=== PATIENT | female | born 1960 | race Caucasian/White ===

== ENCOUNTER 2017-10-05 13:35 | Day surgery (SDC) | payer OTHER ==
[2017-10-05] MEDS ORDERED: LACTATED RINGERS 1,000 ML IV ONE (14:15)
[2017-10-05] MEDS ORDERED: MIDAZOLAM 2 MG/2 ML VIAL IVP ONE (16:25)
[2017-10-05] MEDS ORDERED: fentaNYL 100 MCG/2 ML VIAL IVP ONE (16:25)
[2017-10-05 16:57] VITALS: BP 124/77
== END 2017-10-05 13:36 | disposition home or self-care (01) ==
LOC: SDS 13:35
PROVIDERS: ATTEND Surgery
PROC: 0DJD8ZZ Inspection of Lower Intestinal Tract, Via Natural or Artificial Opening Endoscopic (ICD-10-PCS; principal; 2017-10-05 15:00)
DX: Z12.11 Encounter for screening for malignant neoplasm of colon (principal); K64.8 Other hemorrhoids
CPT/HCPCS: 45378; J7120

== ENCOUNTER 2018-01-25 03:09 | Emergency (ER) | payer OTHER ==
[2018-01-25 03:26] LABS: BILIRUBIN,URINE NEGATIVE (NEGATIVE); GLUCOSE, URINE (UA) NEGATIVE (NEGATIVE); KETONES,URINE (UA) NEGATIVE (NEGATIVE); LEUKOCYTE ESTERASE, URINE NEGATIVE (NEGATIVE); NITRITE,URINE NEGATIVE (NEGATIVE); OCCULT BLOOD,URINE NEGATIVE (NEGATIVE); PROTEIN,URINE NEGATIVE (NEGATIVE); UROBILINOGEN,URINE 1 (NORMAL) E.U./dL (NORMAL)
[2018-01-25 03:30] LABS: CLARITY,URINE CLEAR (CLEAR)
[2018-01-25 04:03] LABS: BASOPHILS # (AUTO) 0.1 10^3/uL (0.0-0.1); BASOPHILS % (AUTO) 0.9 %; EOSINOPHILS # (AUTO) 0.1 10^3/uL (0.0-0.7); EOSINOPHILS % (AUTO) 1.5 %; HGB - HEMOGLOBIN 12.1 g/dL (12.0-16.0); MEAN CORPUSCULAR HGB CONC 33.6 g/dL (32.0-36.0); MEAN CORPUSCULAR VOLUME 86.4 fL (81.0-99.0); MONOCYTES # (AUTO) 0.9 10^3/uL (0.0-1.0); MONOCYTES % (AUTO) 12.4 %; NEUTROPHILS # (AUTO) 5.3 10^3/uL (1.5-6.6); NEUTROPHILS % (AUTO) 71.2 %; PLT - PLATELET COUNT 281 10^3/uL (130-450); RED BLOOD COUNT 4.16 10^6/uL (4.20-5.40); RED CELL DISTRIBUTION WIDTH 12.3 % (12.0-15.0); WHITE BLOOD COUNT 7.5 x10^3/uL (4.8-10.8)
[2018-01-25 04:15] LABS: ALBUMIN 3.5 g/dL (3.2-5.5); ALBUMIN/GLOBULIN RATIO 0.9 (1.0-2.2); BILIRUBIN,TOTAL 0.5 mg/dL (0.2-1.0); CALCIUM 8.5 mg/dL (8.5-10.3); CREATININE 0.7 mg/dL (0.4-1.0); TOTAL PROTEIN 7.5 g/dL (6.7-8.2)
[2018-01-25] MEDS ORDERED: KETOROLAC 60 MG/2 ML VIAL IM STA (04:17)
[2018-01-25] MEDS ORDERED: POTASSIUM CHLORIDE 20 MEQ TABLET PO STA (04:17)
[2018-01-25] MEDS ORDERED: CYCLOBENZAPRINE 10 MG TABLET PO STA (04:27)
--- NOTE | 2018-01-25 04:32 | ED Physician Documentation ---
PD HPI BACK PAIN - Stated complaint Stated Complaint: R SIDE BACK PAIN - Chief complaint Chief Complaint: Abd Pain - History obtained from History obtained from: Patient - History of Present Illness Timing - onset: How many weeks ago (1) Timing - details: Gradual onset, Still present Location: Upper, Lower, Right Quality: Pain, Spasm Associated symptoms: No: Fever, Weakness, Hematuria Similar symptoms before: Has not had sx before Recently seen: Not recently seen - Additional information Additional information: Patient is a 57 year old female with no significant past medical history who is presenting to the emergency department for right sided back pain. patient states that for the last week she has had right sided flank pain and it radiates up to her right shoulder. patient states that she took ibuprofen but it didn't really help. Review of Systems Constitutional: denies: Fever, Chills Eyes: reports: Reviewed and negative Ears: reports: Reviewed and negative Nose: reports: Reviewed and negative Throat: reports: Reviewed and negative Cardiac: denies: Chest pain / pressure, Palpitations Respiratory: denies: Dyspnea, Cough, Wheezing GI: denies: Abdominal Pain, Nausea, Vomiting : denies: Dysuria, Frequency Skin: denies: Rash Musculoskeletal: reports: Back pain. 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 - Present Medications Home Medications: Ambulatory Orders Medication Instructions Recorded Confirmed Lisinopril 20 mg PO 10/05/17 Cyclobenzaprine [Flexeril] 10 mg PO TID PRN #14 tablet 01/25/18 Lidocaine Patch 5% [Lidoderm Patch] 1 each TOP DAILY #14 patch 01/25/18 - Allergies Allergies/Adverse Reactions: Allergies Allergy/AdvReac Type Severity Reaction Status Date / Time No Known Drug Allergies Allergy Verified 08/08/13 09:54 - Social History Does the pt smoke?: No Smoking Status: Never smoker Does the pt drink ETOH?: No Does the pt have substance abuse?: No - Immunizations Immunizations are current?: Yes - POLST Patient has POLST: No PD ED PE NORMAL - Vitals Vital signs reviewed: Yes - General General: Alert and oriented X 3, No acute distress - HEENT HEENT: Atraumatic, PERRL - Neck Neck: Supple, no meningeal sign - Cardiac Cardiac: RRR - Respiratory Respiratory: No respiratory distress, Clear bilaterally - Abdomen Abdomen: Soft, Non tender, Non distended - Derm Derm: Normal color, Warm and dry - Extremities Extremities: No deformity - Neuro Neuro: Alert and oriented X 3 PD ED PE EXPANDED - Abdomen Abdomen: Surgical scars (ruq surgical scar). No: Rebound, Guarding - Back Back: Soft tissue tenderness (tenderness to palpatioin of right paraspinal muscles and lower trapezious muscles) Results - Vitals Vitals: Vital Signs - 24 hr 01/25/18 03:10 Temperature 36.6 C Heart Rate 71 Respiratory 20 Rate Blood Pressure 185/89 H O2 Saturation 97 Oxygen O2 Source Room air - Labs Labs: Laboratory Tests 01/25/18 01/25/18 01/25/18 03:20 03:55 03:55 WBC 7.5 RBC 4.16 L Hgb 12.1 Hct 35.9 L MCV 86.4 MCH 29.0 MCHC 33.6 RDW 12.3 Plt Count 281 MPV 7.0 L Neut # 5.3 Lymph # 1.0 L [place] # 0.9 Eos # 0.1 Baso # 0.1 Absolute Nucleated RBC 0.01 Nucleated RBC % 0.1 Sodium 135 Potassium 3.1 L Chloride 102 Carbon Dioxide 25 Anion Gap 8.0 BUN 12 Creatinine 0.7 Estimated GFR (MDRD) 87 L Glucose 126 H Calcium 8.5 Total Bilirubin 0.5 AST 39 ALT 45 Alkaline Phosphatase 122 H Total Protein 7.5 Albumin 3.5 Globulin 4.0 Albumin/Globulin Ratio 0.9 L Lipase 26 Urine Color YELLOW Urine Clarity CLEAR Urine pH 6.0 Ur Specific [place] 1.010 Urine Protein NEGATIVE Urine Glucose (UA) NEGATIVE Urine Ketones NEGATIVE Urine Occult Blood NEGATIVE Urine Nitrite NEGATIVE Urine Bilirubin NEGATIVE Urine Urobilinogen 1 (NORMAL) Ur Leukocyte Esterase NEGATIVE Ur Microscopic Review NOT INDICATED Urine Culture Comments NOT INDICATED PD MEDICAL DECISION MAKING - ED course Complexity details: reviewed old records, reviewed results, re-evaluated patient , considered differential, d/w patient ED course: Patient was seen and examined at bedside. Patient's urine was collected. patient's urine showed no abnormalities labs were drawn and within normal limits. Patient vital signs were within normal limits. patient was treated with toradol and flexeril. patient required no further work up and was stable for discharge with outpatient follow up . Departure - Departure Disposition: 01 Home, Self Care Clinical Impression: Back pain Condition: Good Instructions: ANTI-INFLAMMATORY, General, ED Spasm Back No Trauma Follow-Up: Sharona Jenkins DO [Primary Care Provider] - Prescriptions: Cyclobenzaprine [Flexeril] 10 mg PO TID PRN #14 tablet PRN Reason: Spasms Lidocaine Patch 5% [Lidoderm Patch] 1 each TOP DAILY #14 patch Comments: Your diagnostics today were within normal limits. there were no abnormalities on your blood work or urine. your symptoms are likely muscloskeletal in nature. You should alternate between motrin and tylenol as needed for pain and and flexeril for spasm. You should try seeing a massage therapist. You should follow up with your doctor if your symptoms persist. You may return to the emergency department at any time for new, worsening or uncontrollable symptoms. Forms: Activity restrictions
[2018-01-25 04:34] VITALS: BP 165/79
== END 2018-01-25 04:41 | disposition home or self-care (01) ==
LOC: ED 03:09
DX: M54.9 Dorsalgia, unspecified (principal); I10 Essential (primary) hypertension
CPT/HCPCS: 36415; 80053; 81003; 83690; 85025; 96372; 99283; A9270; 81001; 87086

== ENCOUNTER 2018-09-24 10:57 | Outpatient (CLI) | payer OTHER ==
[2018-09-24 15:04] LABS: ALBUMIN 3.8 g/dL (3.2-5.5); ALKALINE PHOSPHATASE 61 IU/L (42-121); ALT ALANINE AMINOTRANSFERASE 12 IU/L (10-60); AST ASPARTATE AMINOTRANSFERASE 15 IU/L (10-42); BILIRUBIN,TOTAL 0.4 mg/dL (0.2-1.0); BUN - BLOOD UREA NITROGEN 9 mg/dL (6-20); CALCIUM 8.6 mg/dL (8.5-10.3); CARBON DIOXIDE - CO2 27 mmol/L (21-32); CHLORIDE 105 mmol/L (101-111); CHOL/HDL RATIO 2.9 (<4.4); CHOLESTEROL 162 mg/dL; CREATININE 0.3 mg/dL (0.4-1.0); GFR - MDRD 230 (>89); GLUCOSE 93 mg/dL (70-100); HDL CHOLESTEROL 55 mg/dL; LDL CHOLESTEROL,CALCULATED 79 mg/dL; LDL/HDL RATIO 1.4 (<4.4); SODIUM 136 mmol/L (135-145); TOTAL PROTEIN 7.6 g/dL (6.7-8.2); VLDL CHOLESTEROL 28 mg/dL
[2018-09-24 15:21] LABS: BASOPHILS % (AUTO) 0.8 %; EOSINOPHILS # (AUTO) 0.1 10^3/uL (0.0-0.7); EOSINOPHILS % (AUTO) 3.1 %; HGB - HEMOGLOBIN 12.8 g/dL (12.0-16.0); LYMPHOCYTES # (AUTO) 1.8 10^3/uL (1.5-3.5); LYMPHOCYTES % (AUTO) 39.7 %; MEAN CORPUSCULAR HEMOGLOBIN 29.9 pg (27.0-31.0); MEAN CORPUSCULAR HGB CONC 34.8 g/dL (32.0-36.0); MEAN CORPUSCULAR VOLUME 85.8 fL (81.0-99.0); MEAN PLATELET VOLUME 8.6 fL (7.9-10.8); MONOCYTES # (AUTO) 0.4 10^3/uL (0.0-1.0); MONOCYTES % (AUTO) 8.6 %; NEUTROPHILS # (AUTO) 2.2 10^3/uL (1.5-6.6); NEUTROPHILS % (AUTO) 47.8 %; PLT - PLATELET COUNT 304 10^3/uL (130-450); RED BLOOD COUNT 4.27 10^6/uL (4.20-5.40); RED CELL DISTRIBUTION WIDTH 12.9 % (12.0-15.0); WHITE BLOOD COUNT 4.6 x10^3/uL (4.8-10.8)
[2018-09-24 15:28] LABS: HEMOGLOBIN A1C 0.55 g/dL; HEMOGLOBIN A1C % 5.7 % (4.6-6.2)
== END 2018-09-24 10:58 | disposition home or self-care (01) ==
LOC: LAB.WCP 10:57
PROVIDERS: ATTEND Family Medicine
DX: I10 Essential (primary) hypertension (principal); R73.01 Impaired fasting glucose
CPT/HCPCS: 36415; 80053; 80061; 83036; 83721; 85025

== ENCOUNTER 2018-09-24 15:51 | Outpatient (CLI) | payer OTHER ==
--- NOTE | 2018-09-25 08:49 | XRAY Report ---
Reason: HIP PAIN,LEFT Procedure Date: 09/24/2018 Accession Number: [id number] / [id number] Procedure: XR - Hip w/Pelvis 2-3V LT CPT Code: FULL RESULT: EXAM: LEFT HIP AND PELVIS RADIOGRAPHY EXAM DATE: 09/24/2018 04:35 PM. HISTORY: HIP Pain, left. COMPARISONS: None. TECHNIQUE: 1 view of the pelvis and 1 view of the hip. FINDINGS: Bones: Normal. No fracture or bone lesion. Joints: Mild left hip joint space narrowing. Soft Tissues: Right lower quadrant surgical clip. No soft tissue swelling. IMPRESSION: Mild left hip degenerative disease. RADIA
--- NOTE | 2018-09-25 08:50 | XRAY Report ---
Reason: KNEE PAIN Procedure Date: 09/24/2018 Accession Number: [id number] / [id number] Procedure: XR - Knee 3 View LT CPT Code: FULL RESULT: EXAM: LEFT KNEE RADIOGRAPHY EXAM DATE: 09/24/2018 04:35 PM. CLINICAL HISTORY: KNEE PAIN. COMPARISON: None. TECHNIQUE: 3 views. Weightbearing. FINDINGS: Bones: Normal. No fractures or bone lesions. Joints: Mild medial compartment joint space narrowing. Mild medial and patellofemoral compartment marginal spurring. Small joint effusion. No subluxation. Soft Tissues: Normal. No soft tissue swelling. IMPRESSION: 1. Mild osteoarthritis, greater within the medial compartment. 2. Small joint effusion. RADIA
== END 2018-09-24 15:52 | disposition home or self-care (01) ==
LOC: DI 15:51
PROVIDERS: ATTEND Family Medicine
DX: M16.12 Unilateral primary osteoarthritis, left hip (principal); M17.12 Unilateral primary osteoarthritis, left knee; M25.462 Effusion, left knee; I10 Essential (primary) hypertension; R73.01 Impaired fasting glucose
CPT/HCPCS: 36415; 80053; 80061; 83036; 85025

== ENCOUNTER 2018-10-05 14:58 | Outpatient (CLI) | payer OTHER ==
--- NOTE | 2018-10-17 08:30 | Mammography Report ---
Reason: SCREENING MAMMO Procedure Date: 10/05/2018 Accession Number: [id number] / [id number] Procedure: MGN - Screening Mammo Dig Bilat CPT Code: FULL RESULT: EXAM: Screening Mammo Dig Bilat DATE: 10/05/2018 3:16 PM CLINICAL HISTORY: Screening encounter. Examination. History of late childbearing. Family history of breast cancer in a sister at the age of 57. TECHNIQUE: Bilateral CC and MLO views were obtained. COMPARISON: None FINDINGS: The breasts demonstrate heterogeneously dense fibroglandular parenchyma bilaterally. No suspicious masses, clustered microcalcifications, or regions of architectural distortion are identified. IMPRESSION: Negative examination RECOMMENDATION: Routine annual screening unless otherwise clinically indicated. BIRADS CATEGORY 1: Negative STANDARD QUALIFYING STATEMENTS: 1. This examination was reviewed with the aid of Computer-Aided Detection (CAD). 2. A negative or benign imaging report should not preclude biopsy if clinically suspicious findings are present. 3. Dense breasts may obscure an underlying neoplasm. 4. This examination was reviewed without the aid of 3D breast imaging (tomosynthesis).
== END 2018-10-05 14:59 | disposition home or self-care (01) ==
LOC: DI.N 14:58
DX: Z12.31 Encounter for screening mammogram for malignant neoplasm of breast (principal); Z80.3 Family history of malignant neoplasm of breast
CPT/HCPCS: 77067

== ENCOUNTER 2018-11-06 23:05 | Emergency (ER) | payer OTHER ==
--- NOTE | 2018-11-06 23:19 | ED Physician Documentation ---
PD HPI ABD PAIN - Stated complaint Stated Complaint: LT LOWER RIB PAIN - Chief complaint Chief Complaint: Abd Pain - History obtained from History obtained from: Patient - History of Present Illness Timing - onset: Yesterday Timing - details: Gradual onset, Waxing and waning Pain level max: 8 Pain level now: 2 Quality: Pain Location: LUQ Radiation: No: Chest (Previous ED visits often revealed abnormal LFTs and abnormal findings on RUQ US; however, these symptoms are different location and feel different), , Lower back, Left flank, Left shoulder, Right flank, Right shoulder, Upper back Improved by: No: Eating, Laying still, Vomiting, BM, Position, Meds Worsened by: No: Eating, Moving, Breathing, Position, Palpation Associated symptoms: Nausea. 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 - Present Medications Home Medications: Ambulatory Orders Medication Instructions Recorded Confirmed Lisinopril 20 mg PO 10/05/17 Cyclobenzaprine [Flexeril] 10 mg PO TID PRN #14 tablet 01/25/18 Lidocaine Patch 5% [Lidoderm Patch] 1 each TOP DAILY #14 patch 01/25/18 - Allergies Allergies/Adverse Reactions: Allergies Allergy/AdvReac Type Severity Reaction Status Date / Time lisinopril AdvReac Respiratory Verified 11/07/18 14:48 - Social History Does the pt smoke?: No Smoking Status: Never smoker Does the pt drink ETOH?: No Does the pt have substance abuse?: No - Immunizations Immunizations are current?: Yes - POLST Patient has POLST: No PD ED PE NORMAL - Vitals Vital signs reviewed: Yes - General General: Alert and oriented X 3, No acute distress, Well developed/nourished - Cardiac Cardiac: RRR, No murmur - Respiratory Respiratory: No respiratory distress, Clear bilaterally - Abdomen Abdomen: Normal bowel sounds, Soft, Non distended, No organomegaly, Other (Mild epigastric and LUQ tenderness to palpation without rebound or guarding) - Back Back: No CVA TTP - Derm Derm: Normal color, Warm and dry Results - Vitals Vitals: Oxygen O2 Source Room air - Labs Labs: Laboratory Tests 11/06/18 11/06/18 11/06/18 23:30 23:30 23:30 WBC 8.8 RBC 4.34 Hgb 13.0 Hct 37.1 MCV 85.6 MCH 30.0 MCHC 35.0 RDW 13.2 Plt Count 234 MPV 7.4 L Neut # (Auto) 6.9 H Lymph # (Auto) 1.1 L [place] # (Auto) 0.8 Eos # (Auto) 0.0 Baso # (Auto) 0.0 Absolute Nucleated RBC 0.01 Nucleated RBC % 0.1 D-Dimer 258.4 H Sodium 134 L Potassium 3.4 L Chloride 105 Carbon Dioxide 22 Anion Gap 7.0 BUN 10 Creatinine 0.7 Estimated GFR (MDRD) 87 L Glucose 132 H Calcium 8.8 Total Bilirubin 1.1 H AST 19 ALT 16 Alkaline Phosphatase 68 Total Protein 8.0 Albumin 4.0 Globulin 4.0 Albumin/Globulin Ratio 1.0 Amylase Lipase 34 11/06/18 23:30 WBC RBC Hgb Hct MCV MCH MCHC RDW Plt Count MPV Neut # (Auto) Lymph # (Auto) [place] # (Auto) Eos # (Auto) Baso # (Auto) Absolute Nucleated RBC Nucleated RBC % D-Dimer Sodium Potassium Chloride Carbon Dioxide Anion Gap BUN Creatinine Estimated GFR (MDRD) Glucose Calcium Total Bilirubin AST ALT Alkaline Phosphatase Total Protein Albumin Globulin Albumin/Globulin Ratio Amylase 59 Lipase PD MEDICAL DECISION MAKING - ED course Complexity details: reviewed old records, reviewed results, re-evaluated patient, considered differential, d/w patient, d/w family ED course: reassuring blood tests and entirely nontender abdomen on reexam. emergent imaging unlikely to reveal etiology of symptoms or change (expectant) management. Departure - Departure Disposition: Home, Self Care Clinical Impression: Abdominal pain Condition: Good Instructions: ED Abdominal Pain Unkn Cause Follow-Up: Sharona Jenkins DO [Primary Care Provider] - (Call in the morning to arrange for next available appointment) Discharge Date/Time: 11/07/18 01:30
[2018-11-06 23:37] LABS: BASOPHILS % (AUTO) 0.4 %; EOSINOPHILS % (AUTO) 0.5 %; LYMPHOCYTES # (AUTO) 1.1 10^3/uL (1.5-3.5); LYMPHOCYTES % (AUTO) 12.1 %; MEAN CORPUSCULAR VOLUME 85.6 fL (81.0-99.0); MEAN PLATELET VOLUME 7.4 fL (7.9-10.8); MONOCYTES # (AUTO) 0.8 10^3/uL (0.0-1.0); MONOCYTES % (AUTO) 8.8 %; NEUTROPHILS # (AUTO) 6.9 10^3/uL (1.5-6.6); NEUTROPHILS % (AUTO) 78.2 %; PLT - PLATELET COUNT 234 10^3/uL (130-450); RED BLOOD COUNT 4.34 10^6/uL (4.20-5.40); RED CELL DISTRIBUTION WIDTH 13.2 % (12.0-15.0); WHITE BLOOD COUNT 8.8 x10^3/uL (4.8-10.8)
[2018-11-06 23:48] LABS: BILIRUBIN,TOTAL 1.1 mg/dL (0.2-1.0); CALCIUM 8.8 mg/dL (8.5-10.3); CREATININE 0.7 mg/dL (0.4-1.0)
[2018-11-07 01:18] VITALS: BP 128/70
[2018-11-07] MEDS ORDERED: HYDROcod/ACET 5/325 Prepack 4 PO STA (01:19)
== END 2018-11-07 01:30 | disposition home or self-care (01) ==
LOC: ED 23:05
DX: R10.13 Epigastric pain (principal); R10.12 Left upper quadrant pain
CPT/HCPCS: 36415; 80053; 82150; 83690; 85025; 85379; 99283

== ENCOUNTER 2020-07-15 12:09 | Observation (INO) | payer OTHER ==
[2020-07-15] MEDS ORDERED: SODIUM CHLORIDE FLUSH 0.9% 10 ML SYRINGE IVP PRN (14:48)
[2020-07-15] MEDS ORDERED: MORPHINE 2 MG/ML CARPUJECT IVP PRN (14:48)
[2020-07-15] MEDS ORDERED: ONDANSETRON 4 MG/2 ML VIAL IVP PRN (14:48)
[2020-07-15] MEDS ORDERED: oxyCODONE 5 MG TABLET PO PRN (14:48)
--- NOTE | 2020-07-15 14:55 | HISTORY & PHYSICAL EXAMINATION ---
Chief Complaint - Chief Complaint Chief Complaint: abdominal pain History of Present Illness - Admitted From Admitted From:: direct admission from Dr. Izabela Jenkins office - History Obtained From History obtained from: pt Exam Limitations: no - History of Present Illness HPI Comment/Other: This is a 60 years old female with a past medical history significant for hypotension, Cholelithiasis, Who was directly admission from Dr. Izabela Jenkins's office, complain of abdominal pain. Patient reported he want to [facility] for her abdominal pain. she reported they did a CAT scan for her abdomen and told her she could have cancer and wanted patient be transferred to the [facility] to the further management. Patient declined and left the hospital, she want to see her primary care. Per her primary care Dr. Izabela Mcduffie report Patient may have abscess with fluid collection in her abdomen per radiologist reported to her. Then patient was advised by Dr. Izabela Jenkins to the hospital by direction admission. Patient reported she had abdominal pain for a few days ago, she denies fever or chilling, Nausea, vomiting, diarrhea. She reported her pain located in right upper quadrant, Coming and going. Pain become more intensive special when she had a deep breathing. We are still waiting for Dr. Izabela Jenkins's report of pt's discharge summary from [facility], CAT scan, [facility] report, and primary care visiting report. Consult with surgeon, surgeon suggest to have CAT scan with contrast in our hospital now. Patient is admitted for further medical management. 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 Her sister has breast cancer Social History Notes: Patient denies history of cigarette smoking, alcohol and drug issues.She had 3 daughters and is living in the [place] with her . - POLST Patient has POLST: No Meds/Allgy - Home Medications Home Medications: Ambulatory Orders Medication Instructions Recorded Confirmed Ketorolac [Toradol] 10 mg PO Q6H PRN 07/15/20 - Allergies Allergies/Adverse Reactions: Allergies Allergy/AdvReac Type Severity Reaction Status Date / Time lisinopril AdvReac Respiratory Verified 11/07/18 14:48 Review of Systems - Constitutional Constitutional: denies: Fatigue, Fever, Chills, Malaise, Weakness, Diaphoresis, Night sweats - Eyes Eyes: denies: Pain, Blurred vision, Spots in vision, Field loss, Vision loss, Dipolpia - Ears, Nose & Throat Ears, Nose & Throat: denies: Ear pain, Tinnitus, Vertigo, Nasal pain, Nasal discharge, Nosebleeds, Nasal obstruction, Mouth lesions, Bleeding gums - Cardiovascular Cariovascular: denies: Irregular heart rate, Palpitations, Chest pain, Edema, Lightheadedness, Syncope, Exertional dyspnea, Decr. exercise tolerance - Respiratory Respiratory: denies: Cough, Sputum production, Wheezing, Snoring, Hemoptysis, Orthopnea, SOB at rest, SOB with exertion - Gastrointestinal Gastrointestinal: reports: Abdominal pain. denies: Abdominal distention, Constipation, Diarrhea, Change in bowel habits, Rectal bleeding, Black stools, Bloody stools, Nausea, Vomiting, Saym blood emesis, Coffee grounds emesis, Reflux/heartburn - Genitourinary Genitourinary: denies: Dysuria, Frequency, Urgency, Hematuria, Incontinence, Flank pain, Nocturia, Urethral discharge - Musculoskeletal Musculoskeletal: denies: Muscle pain, Back pain, Muscle aches, Stiffness, Limited range of motion, Gout - Integumentary Integumentary: denies: Rash, Lesions, Lumps, Pigment changes, Nail changes - Neurological Neurological: denies: General weakness, Focal weakness, Headache, Dizziness, Numbness, Memory problems, Pre-existing deficit, Abnormal gait, Seizures, Incoordination, Slurred speech - Psychiatric Psychiatric: denies: Depression, Anxiety, Suicidal, Delusions, Hallucinations, Homicidal - Endocrine Endocrine: denies: Polyuria, Polydypsia, Polyphagia, Intolerance to cold - Hematologic/Lymphatic Hematologic/Lymphatic: denies: Anemia, Bruising, Petechiae, Blood clots, Lymphadenopathy, Bleeding tendencies, Recurrent infections Exam - Physical Exam General Appearance: positive: No acute distress, Alert. negative: Lethargic Eyes Bilateral: positive: Normal inspection, PERRL, No lid inflammation ENT: positive: ENT inspection nml, No signs of dehydration. negative: Purulent nasal drainage Neck: positive: Nml inspection, Thyroid nml, Trachea midline. negative: Thyrom egaly, Stiff neck, Tracheal deviation Respiratory: positive: Chest non-tender, No respiratory distress, Breath sounds nml. negative: Wheezes, Rales, Rhonchi Cardiovascular: positive: Regular rate & rhythm, No murmur. negative: Tachycardia, Bradycardia, Systolic murmur, Diastolic murmur Peripheral Pulses: positive: 2+ Abdomen: positive: Non-tender, No organomegaly, Nml bowel sounds, No distention. negative: Tenderness, Guarding, Rebound, Abnml bowel sounds Back: positive: Nml inspection. negative: CVA tenderness (R), CVA tenderness (L) Skin: positive: Color nml, No rash, Warm, Dry. negative: Cyanosis, Diaphoresis, Pallor Extremities: positive: Non-tender, Full ROM, Nml appearance. negative: Calf tenderness, Dianne's sign/cords Neurologic/Psychiatric: positive: Oriented x3, Motor nml, Sensation nml, Mood/affect nml. negative: Weakness, Sensory loss, Facial droop, Slurred/abnml speech, Depressed mood/affect Conclusion/Plan - Problem List (1) Abdominal pain Conclusion/Plan: Patient report abdominal pain but is better than before. Patient signed AMA and [facility]. Radiologist reported to Dr. Izabela Poe Patient had intra- abdominal abscess. We still did not receive any documentation or imaging study yet. Consult with our surgeon, surgeon suggestion we do CAT scan in here right now. 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
[2020-07-15 15:10] LABS: BASOPHILS % (AUTO) 0.5 %; EOSINOPHILS # (AUTO) 0.2 10^3/uL (0.0-0.7); EOSINOPHILS % (AUTO) 3.8 %; HGB - HEMOGLOBIN 12.4 g/dL (12.0-16.0); LYMPHOCYTES # (AUTO) 1.4 10^3/uL (1.5-3.5); LYMPHOCYTES % (AUTO) 22.3 %; MEAN CORPUSCULAR HEMOGLOBIN 29.5 pg (27.0-31.0); MEAN CORPUSCULAR HGB CONC 33.2 g/dL (32.0-36.0); MEAN CORPUSCULAR VOLUME 88.6 fL (81.0-99.0); MEAN PLATELET VOLUME 8.6 fL (7.9-10.8); MONOCYTES # (AUTO) 0.7 10^3/uL (0.0-1.0); MONOCYTES % (AUTO) 10.3 %; NEUTROPHILS % (AUTO) 62.6 %; PLT - PLATELET COUNT 337 10^3/uL (130-450); RED BLOOD COUNT 4.21 10^6/uL (4.20-5.40); RED CELL DISTRIBUTION WIDTH 12.1 % (12.0-15.0); WHITE BLOOD COUNT 6.4 x10^3/uL (4.8-10.8)
[2020-07-15 15:26] LABS: ALBUMIN 3.7 g/dL (3.2-5.5); ALBUMIN/GLOBULIN RATIO 0.9 (1.0-2.2); BILIRUBIN,TOTAL 0.3 mg/dL (0.2-1.0); CALCIUM 8.9 mg/dL (8.5-10.3); CREATININE 0.8 mg/dL (0.4-1.0); MAGNESIUM 2.2 mg/dL (1.7-2.8); TOTAL PROTEIN 7.9 g/dL (6.7-8.2)
[2020-07-15] MEDS ORDERED: POTASSIUM CHLORIDE 20 MEQ TABLET PO SCH (15:35)
[2020-07-15] MEDS ORDERED: PIPERACILLIN/TAZOBACTAM 3.375 GM in SODIUM CHLORIDE 0.9% MINIBAG 100 ML IV SCH (16:00)
[2020-07-15] MEDS: SODIUM CHLORIDE 0.9% 1,000 ML IV SCH (16:35)
[2020-07-15] MEDS ORDERED: hydrALAZINE INJ 20 MG/ML VIAL IVP PRN (16:48)
[2020-07-15] MEDS ORDERED: IOVERSOL 320 100 ML VIAL IVP ONE ×2 (16:50→19:13)
[2020-07-15] MEDS ORDERED: IOVERSOL 320 50 ML VIAL ONE (16:50)
[2020-07-15 17:10] LABS: INR 1.3 (0.8-1.2); PT - PROTHROMBIN TIME 13.8 secs (9.9-12.6)
[2020-07-15] MEDS: SODIUM CHLORIDE FLUSH 0.9% 10 ML SYRINGE IVP SCH (17:44)
[2020-07-15] MEDS: amLODIPine 5 MG TABLET PO SCH (17:53)
[2020-07-15] MEDS ORDERED: IOVERSOL 320 50 ML VIAL PO ONE (19:12)
--- NOTE | 2020-07-15 20:41 | CT Report ---
PROCEDURE: Abdomen/Pelvis W INDICATIONS: RIGHT UPPER QUAD PAIN CONTRAST: IV CONTRAST: Optiray 320 ml: 100 PO CONTRAST: Optiray 320 ml50 TECHNIQUE: After the administration of oral and intravenous contrast, 5 mm thick sections acquired from the diap hragms to the symphysis. 5 mm thick coronal and sagittal reformats were acquired. For radiation dos e reduction, the following was used: automated exposure control, adjustment of mA and/or kV accordin g to patient size. COMPARISON: CT abdomen pelvis 06/30/2013. FINDINGS: Image quality: Excellent. ABDOMEN: Lung bases: There is a bandlike region of consolidation or atelectasis posteriorly in the right lowe r lobe. There is also atelectasis inferiorly in the right middle lobe. Heart size is normal. Solid organs: There are postsurgical changes suggestive of prior partial right hepatectomy. Posterior ly within the residual right hepatic lobe, there is a multiloculated thick walled cystic collection o r mass measuring up to 6.3 x 4.6 x 5.5 cm with associated adjacent enhancement of the hepatic parench yma. There is perforation beyond the posterior right hepatic capsule with a small amount of perihepat ic fluid demonstrated posteriorly. There is extension to the posterior right hemidiaphragm. An adjace nt region of masslike thickening in the posterior right abdominal wall measuring up to 3.5 x 2.2 cm a ppears unchanged from the prior study. Postsurgical changes are noted in the [place] hepatis with associated pneumobilia. The gallbladder is s urgically absent. Pancreas enhances normally. No adrenal nodules. Kidneys demonstrate normal size a nd enhancement, without hydronephrosis. Peritoneum and bowel: Bowel loops demonstrate normal wall thickness and caliber. No free fluid or a ir. Nodes and vessels: No retroperitoneal or mesenteric adenopathy by size criteria. Aorta and inferior vena cava are normal in size. Miscellaneous: No ventral hernias. PELVIS: Genitourinary: Bladder wall thickness is normal. Miscellaneous: No inguinal hernias or adenopathy. Bones: No suspicious bony lesions. No vertebral body compression fractures. IMPRESSION: 1. Multiloculated thick walled fluid collection or mass demonstrated in the remnant posterior right h epatic lobe with extracapsular extension posteriorly. Associated small amount of adjacent perihepatic fluid is demonstrated as well as a small right pleural effusion and right basilar consolidation. The findings may represent an abscess or a cystic neoplasm. 2. Postsurgical changes status post partial right hepatectomy redemonstrated. 3. Pneumobilia demonstrated, likely related to prior surgery. Reviewed by: Jose E Cortes MD on 07/15/2020 8:39 PM PDT Approved by: Jose E Cortes MD on 07/15/2020 8:39 PM PDT Station ID: [id number]
[2020-07-15] MEDS: PIPERACILLIN/TAZOBACTAM 3.375 GM in SODIUM CHLORIDE 0.9% MINIBAG 100 ML IV SCH (21:27)
[2020-07-16] MEDS: SODIUM CHLORIDE FLUSH 0.9% 10 ML SYRINGE IVP SCH ×3 (01:13→16:06)
[2020-07-16 05:01] LABS: BASOPHILS % (AUTO) 0.3 %; EOSINOPHILS # (AUTO) 0.3 10^3/uL (0.0-0.7); EOSINOPHILS % (AUTO) 4.3 %; HGB - HEMOGLOBIN 12.3 g/dL (12.0-16.0); LYMPHOCYTES # (AUTO) 1.3 10^3/uL (1.5-3.5); LYMPHOCYTES % (AUTO) 21.3 %; MEAN CORPUSCULAR HEMOGLOBIN 29.9 pg (27.0-31.0); MEAN CORPUSCULAR HGB CONC 33.1 g/dL (32.0-36.0); MEAN CORPUSCULAR VOLUME 90.5 fL (81.0-99.0); MEAN PLATELET VOLUME 8.7 fL (7.9-10.8); MONOCYTES # (AUTO) 0.7 10^3/uL (0.0-1.0); MONOCYTES % (AUTO) 11.5 %; NEUTROPHILS # (AUTO) 3.9 10^3/uL (1.5-6.6); NEUTROPHILS % (AUTO) 62.1 %; PLT - PLATELET COUNT 330 10^3/uL (130-450); RED BLOOD COUNT 4.11 10^6/uL (4.20-5.40); RED CELL DISTRIBUTION WIDTH 12.1 % (12.0-15.0); WHITE BLOOD COUNT 6.3 x10^3/uL (4.8-10.8)
[2020-07-16 05:10] LABS: CALCIUM 8.9 mg/dL (8.5-10.3); CREATININE 0.6 mg/dL (0.4-1.0)
[2020-07-16] MEDS: PIPERACILLIN/TAZOBACTAM 3.375 GM in SODIUM CHLORIDE 0.9% MINIBAG 100 ML IV SCH ×3 (05:28→21:19)
[2020-07-16] MEDS: PANTOPRAZOLE 40 MG TABLET PO SCH (06:17)
[2020-07-16] MEDS: SODIUM CHLORIDE 0.9% 1,000 ML IV SCH (08:00)
[2020-07-16] MEDS: amLODIPine 5 MG TABLET PO SCH (10:42)
[2020-07-16] MEDS: SACCHAROMYCES BOULARDII 250 MG CAPSULE PO SCH ×2 (10:42→16:06)
[2020-07-16] MEDS: ENOXAPARIN 40 MG/0.4 ML SYRINGE SUBQ SCH (10:42)
[2020-07-16] MEDS: ACETAMINOPHEN 325 MG TABLET PO PRN ×2 (10:48→21:29)
--- NOTE | 2020-07-16 11:47 | CONSULTATION NOTE ---
Referring Provider Name of Referring Provider:: Hospitalist Service Consult Date: 07/15/20 Chief Complaint - Chief Complaint Chief Complaint: Intra-abdominal abscess History of Present Illness - Admitted From Admitted From:: Home - History Obtained From Records Reviewed: EMR History obtained from: Patient Exam Limitations: None - History of Present Illness HPI Comment/Other: Recurrent ongoing abdominal pain in this 60-year-old female with no significant recent surgical history. Noted for intra-abdominal abscess/fluid collection perihepatic on imaging and presents for evaluation and work-up. Multiple presentations recently however refuses to present to referral center for additional work-up. Patient denies any history of sick contacts, travel or other concerning history. She reports only history of appendectomy and cholecystectomy in the remote past. 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 Her sister has breast cancer Social History Notes: Patient denies history of cigarette smoking, alcohol and drug issues.She had 3 daughters and is living in the [place] with her . - POLST Patient has POLST: No Meds/Allgy - Home Medications Home Medications: Ambulatory Orders Medication Instructions Recorded Confirmed No Known Home Medications 07/16/20 07/16/20 - Allergies Allergies/Adverse Reactions: Allergies Allergy/AdvReac Type Severity Reaction Status Date / Time lisinopril AdvReac Respiratory Verified 11/07/18 14:48 Review of Systems - Constitutional Constitutional: reports: Fatigue. denies: Fever, Chills - Respiratory Respiratory: denies: Cough - Gastrointestinal Gastrointestinal: reports: Abdominal pain. denies: Change in bowel habits, Rectal bleeding, Black stools, Bloody stools, Nausea, Vomiting Exam - Vital Signs Vital Signs: Vital Signs x48h Temp Pulse Resp BP BP Pulse Ox 07/16/20 07:43 36.5 C 60 18 152/69 H 98 07/16/20 05:00 36.6 C 60 18 111/83 H 98 - Physical Exam General Appearance: positive: No acute distress, Alert Eyes Bilateral: positive: Normal inspection, PERRL, EOMI ENT: positive: ENT inspection nml Respiratory: positive: Chest non-tender, No respiratory distress, Breath sounds nml Cardiovascular: positive: Regular rate & rhythm Abdomen: positive: Non-tender, Nml bowel sounds, No distention, Tenderness. negative: Guarding, Rebound Rectal: positive: Non-tender Skin: positive: Color nml Extremities: positive: Non-tender, Full ROM, Nml appearance Neurologic/Psychiatric: positive: Oriented x3, CN's nml (2-12) Conclusion/Plan - Diagnosis Diagnosis: 1. Intra-abdominal fluid collection concerning for abscess. 2. Possible hepatic malignancy and/or abscess. 3. History of abdominal surgical intervention historically - Plan Plan: 60-year-old female with reported intra-abdominal fluid collection. No immunocompromise state. No prior recent surgical intervention to which this f luid connection could be attributed. Remote history of cholecystectomy and abdominal surgical intervention including appendectomy decades prior. She reports some abdominal discomfort and has been repeatedly evaluated through the emergency room. She refuses transfer to tertiary referral center for further work-up. Imaging is entirely concerning for complex intra-abdominal process not the least of which is malignancy. Moreover we will have to discuss whether percutaneous sampling of this area would not potentially complicate and propagate a malignant process intra-abdominally that is currently contained. Moreover there is concerning for seeding and infectious process as well. We will have to discuss with the patient at greater length her surgical history. 1. Discussed with radiology how we could better evaluate the mass in the liver and if MR would offer additional insight. 2. Continue antibiotics and await possible further insight from any percutaneous intervention. 3. Bowel rest discussed with the patient with greater care her past surgical history. - Lab Results Fish Bones: 07/16/20 04:35 07/16/20 04:35 - Diagnostic Imaging Results Diagnostic Imaging Results Comments: CT abdomen pelvis impression: 1. Multilobulated thick-walled fluid collection or mass demonstrated in the remnant posterior right hepatic lobe with extracapsular extension posteriorly. Associated small amount of adjacent perihepatic fluid is demonstrated as well as a small right pleural effusion and right basilar consolidation. The findings may represent an abscess or cystic neoplasm. 2. Postsurgical changes status post partial right hepatectomy redemonstrated. 3. Pneumobilia demonstrated, likely related to prior surgery.
--- NOTE | 2020-07-16 13:52 | Ultrasound Report ---
PROCEDURE: Abdomen Limited INDICATIONS: right upper quadrant pain TECHNIQUE: Real-time focused scanning was performed of the abdomen, with image documentation. COMPARISON: CT abdomen pelvis 07/15/2020 FINDINGS: The gallbladder is surgically absent. The biliary tree is nondilated. Liver parenchyma is mildly diffusely hyperechoic. Along the right posterior aspect of the liver, there is a heterogeneous complex mass measuring roughly 5.5 x 4.4 x 5.7 cm, corresponding to the CT finding. There is trace i nternal vascularity. The adjacent right kidney appears normal measuring 10.7 cm in length and with normal cortical thickne ss and echotexture. There is no fluid in Morison's pouch. IMPRESSION: 1. Heterogeneous complex mass along the right posterior aspect of the liver measuring 5.7 cm correspo nds to the prior CT findings. The findings may represent abscess or cystic neoplasm. Correlate clinic ally. 2. Surgically absent gallbladder. Reviewed by: Ingrid Costa MD on 07/16/2020 12:51 PM DYLON Approved by: Ingrid Costa MD on 07/16/2020 12:51 PM DYLON Station ID: [id number]
--- NOTE | 2020-07-16 14:40 | PROVIDER PROGRESS NOTE ---
Subjective - Prog Note Date Prog Note Date: 07/16/20 - Subjective Pt reports feeling: Improved Subjective: Patient reported abdominal pain is better control, she denies fever, chill, chest pain or shortness of breathing. She also denies nausea, vomiting, diarrhea. She reported she had cholecystectomy but she was not aware of she has hepatectomy. She report she had many stone in her liver when they try to remove her gallstone. [facility] CAT scan of the abdomen finding favored to represent of abscess giving the shaggy mural enhancement and internal debris/septation. Our CT scan of her abdomen reveals finding represented an abscess or a cystic neoplasm, and US suggest nearly the same. I called the surgeon, surgeon recommend to have MRI for patient. Current Medications - Current Medications Current Medications: Active Medications Acetaminophen (Tylenol) 650 mg PO Q4HR PRN PRN Reason: Pain 1 to 4 Last Admin: 07/16/20 10:48 Dose: 650 mg Documented by: Amlodipine Besylate (Norvasc) 5 mg PO DAILY [facility] Last Admin: 07/16/20 10:42 Dose: 5 mg Documented by: Enoxaparin Sodium (Lovenox) 40 mg SUBQ DAILY [facility] [place] Last Admin: 07/16/20 10:42 Dose: 40 mg Documented by: Hydralazine HCl (Apresoline Inj) 10 mg IVP Q4H PRN PRN Reason: Hypertensive Emergency Piperacillin Sod/Tazobactam (Sod 3.375 gm/ Sodium Chloride) 100 mls @ 25 mls/hr IV Q8H [facility] [place] Last Admin: 07/16/20 13:55 Dose: 25 mls/hr Documented by: Morphine Sulfate (Morphine (Carpuject)) 2 mg IVP Q2HR PRN PRN Reason: Pain 8 to 10 Ondansetron HCl (Zofran Inj) 4 mg IVP Q6HR PRN PRN Reason: Nausea / Vomiting Oxycodone HCl (Roxicodone) 5 mg PO Q4HR PRN PRN Reason: Pain 5 to 7 Pantoprazole Sodium (Protonix) 40 mg PO QDAC [facility] Last Admin: 07/16/20 06:17 Dose: 40 mg Documented by: Saccharomyces Boulardii (Florastor) 250 mg PO BIDWM [facility] Last Admin: 07/16/20 10:42 Dose: 250 mg Documented by: Sodium Chloride (Normal Saline Flush 0.9%) 10 ml IVP PRN PRN PRN Reason: NEEDED PER PROVIDER ORDERS Sodium Chloride (Normal Saline Flush 0.9%) 10 ml IVP 0100,0900,1700 MEENA Last Admin: 07/16/20 10:43 Dose: 10 ml Documented by: No Known Home Medications 07/16/20 Objective - Vital Signs/Intake & Output Vital Signs: Vital Signs x48h Temp Pulse Pulse Resp BP BP Pulse Ox 07/16/20 12:10 58 L 159/90 H 07/16/20 11:55 36.7 C 56 L 20 173/76 H 97 07/16/20 07:43 36.5 C 60 18 152/69 H 98 Intake & Output: Intake & Output 07/13/20 07/14/20 07/15/20 07/16/20 23:59 23:59 23:59 23:59 Intake Total 1500 2340 Balance 1500 2340 - Objective General Appearance: positive: No acute distress, Alert. negative: Lethargic Eyes Bilateral: positive: Normal inspection, PERRL, No lid inflammation ENT: positive: ENT inspection nml, No signs of dehydration. negative: Purulent nasal drainage Neck: positive: Nml inspection, Thyroid nml, Trachea midline. negative: Thyromegaly, Stiff neck, Tracheal deviation Respiratory: positive: Chest non-tender, No respiratory distress, Breath sounds nml. negative: Wheezes, Rales, Rhonchi Cardiovascular: positive: Regular rate & rhythm, No murmur. negative: Tachycardia, Bradycardia, Systolic murmur, Diastolic murmur Peripheral Pulses: 2+ Radial (R), 2+ Radial (L), 2+ Dorsalis pedis (R), 2+ Dorsa lis pedis (L) Abdomen: positive: Non-tender, No organomegaly, Nml bowel sounds, No distention. negative: Tenderness, Guarding, Rebound Back: positive: Nml inspection. negative: CVA tenderness (R), CVA tenderness (L) Skin: positive: Color nml, No rash, Warm, Dry. negative: Cyanosis, Diaphoresis, Pallor Extremities: positive: Non-tender, Full ROM, Nml appearance. negative: Calf tenderness, Dianne's sign/cords Neurologic/Psychiatric: positive: Oriented x3, Motor nml, Sensation nml, Mood/affect nml. negative: Weakness, Sensory loss, Facial droop, Slurred/abnml speech, Depressed mood/affect - Lab Results Fish Bones: 07/16/20 04:35 07/16/20 04:35 Other Labs: Lab Results x24hrs 07/16/20 07/16/20 07/15/20 Range/Units 04:35 04:35 16:54 WBC 6.3 (4.8-10.8) x10^3/uL RBC 4.11 L (4.20-5.40) 10^6/uL Hgb 12.3 (12.0-16.0) g/dL Hct 37.2 (37.0-47.0) % MCV 90.5 (81.0-99.0) fL MCH 29.9 (27.0-31.0) pg MCHC 33.1 (32.0-36.0) g/dL RDW 12.1 (12.0-15.0) % Plt Count 330 (130-450) 10^3/uL MPV 8.7 (7.9-10.8) fL Neut # (Auto) 3.9 (1.5-6.6) 10^3/uL Lymph # (Auto) 1.3 L (1.5-3.5) 10^3/uL [place] # (Auto) 0.7 (0.0-1.0) 10^3/uL Eos # (Auto) 0.3 (0.0-0.7) 10^3/uL Baso # (Auto) 0.0 (0.0-0.1) 10^3/uL Absolute Nucleated RBC 0.00 x10^3/uL Nucleated RBC % 0.0 /100WBC PT 13.8 H (9.9-12.6) secs INR 1.3 H (0.8-1.2) Sodium 140 (135-145) mmol/L Potassium 4.0 (3.5-5.0) mmol/L Chloride 108 (101-111) mmol/L Carbon Dioxide 24 (21-32) mmol/L Anion Gap 8.0 (6-13) BUN 8 (6-20) mg/dL Creatinine 0.6 (0.4-1.0) mg/dL Estimated GFR (MDRD) 103 (>89) Glucose 105 H (70-100) mg/dL Lactic Acid (0.5-2.2) mmol/L Calcium 8.9 (8.5-10.3) mg/dL Magnesium (1.7-2.8) mg/dL Total Bilirubin (0.2-1.0) mg/dL AST (10-42) IU/L ALT (10-60) IU/L Alkaline Phosphatase (42-121) IU/L Total Protein (6.7-8.2) g/dL Albumin (3.2-5.5) g/dL Globulin (2.1-4.2) g/dL Albumin/Globulin Ratio (1.0-2.2) Lipase (22-51) U/L 07/15/20 07/15/20 07/15/20 Range/Units 15:03 15:03 15:03 WBC (4.8-10.8) x10^3/uL RBC (4.20-5.40) 10^6/uL Hgb (12.0-16.0) g/dL Hct (37.0-47.0) % MCV (81.0-99.0) fL MCH (27.0-31.0) pg MCHC (32.0-36.0) g/dL RDW (12.0-15.0) % Plt Count (130-450) 10^3/uL MPV (7.9-10.8) fL Neut # (Auto) (1.5-6.6) 10^3/uL Lymph # (Auto) (1.5-3.5) 10^3/uL [place] # (Auto) (0.0-1.0) 10^3/uL Eos # (Auto) (0.0-0.7) 10^3/uL Baso # (Auto) (0.0-0.1) 10^3/uL Absolute Nucleated RBC x10^3/uL Nucleated RBC % /100WBC PT (9.9-12.6) secs INR (0.8-1.2) Sodium 137 (135-145) mmol/L Potassium 3.2 L (3.5-5.0) mmol/L Chloride 103 (101-111) mmol/L Carbon Dioxide 24 (21-32) mmol/L Anion Gap 10.0 (6-13) BUN 10 (6-20) mg/dL Creatinine 0.8 (0.4-1.0) mg/dL Estimated GFR (MDRD) 74 L (>89) Glucose 132 H (70-100) mg/dL Lactic Acid 1.3 (0.5-2.2) mmol/L Calcium 8.9 (8.5-10.3) mg/dL Magnesium 2.2 (1.7-2.8) mg/dL Total Bilirubin 0.3 (0.2-1.0) mg/dL AST 16 (10-42) IU/L ALT 23 (10-60) IU/L Alkaline Phosphatase 98 (42-121) IU/L Total Protein 7.9 (6.7-8.2) g/dL Albumin 3.7 (3.2-5.5) g/dL Globulin 4.2 (2.1-4.2) g/dL Albumin/Globulin Ratio 0.9 L (1.0-2.2) Lipase 37 (22-51) U/L / Range/Units 15:03 WBC 6.4 (4.8-10.8) x10^3/uL RBC 4.21 (4.20-5.40) 10^6/uL Hgb 12.4 (12.0-16.0) g/dL Hct 37.3 (37.0-47.0) % MCV 88.6 (81.0-99.0) fL MCH 29.5 (27.0-31.0) pg MCHC 33.2 (32.0-36.0) g/dL RDW 12.1 (12.0-15.0) % Plt Count 337 (130-450) 10^3/uL MPV 8.6 (7.9-10.8) fL Neut # (Auto) 4.0 (1.5-6.6) 10^3/uL Lymph # (Auto) 1.4 L (1.5-3.5) 10^3/uL [place] # (Auto) 0.7 (0.0-1.0) 10^3/uL Eos # (Auto) 0.2 (0.0-0.7) 10^3/uL Baso # (Auto) 0.0 (0.0-0.1) 10^3/uL Absolute Nucleated RBC 0.00 x10^3/uL Nucleated RBC % 0.0 /100WBC PT (9.9-12.6) secs INR (0.8-1.2) Sodium (135-145) mmol/L Potassium (3.5-5.0) mmol/L Chloride (101-111) mmol/L Carbon Dioxide (21-32) mmol/L Anion Gap (6-13) BUN (6-20) mg/dL Creatinine (0.4-1.0) mg/dL Estimated GFR (MDRD) (>89) Glucose (70-100) mg/dL Lactic Acid (0.5-2.2) mmol/L Calcium (8.5-10.3) mg/dL Magnesium (1.7-2.8) mg/dL Total Bilirubin (0.2-1.0) mg/dL AST (10-42) IU/L ALT (10-60) IU/L Alkaline Phosphatase (42-121) IU/L Total Protein (6.7-8.2) g/dL Albumin (3.2-5.5) g/dL Globulin (2.1-4.2) g/dL Albumin/Globulin Ratio (1.0-2.2) Lipase (22-51) U/L ABX Reporting Has patient been on IV antibiotics over the past 48 hours?: Yes Assessment/Plan - Problem List (1) Abdominal pain Impression: 924, patient report abdominal pain is better controlled, she request advance diet. She had soft bowel with good bowel sounds,Negative Aguirre sign. Clinically more suggestion Hepatic abscess. CAT scan and ultrasound reveals no clear for abscess or cystic neoplasm. Surgeon recommended MRI of liver. Continue antibiotics Zosyn, continue pain control Patient report abdominal pain but is better than before. Patient signed AMA and left [facility]. Radiologist reported to Dr. Izabela Poe Patient had intra- abdominal abscess. We still did not receive any documentation or imaging study yet. Consult with our surgeon, surgeon suggestion we do CAT scan in here right now. 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
[2020-07-16] MEDS ORDERED: GADOBUTROL 10 MMOL/10 ML VIAL ONE (15:21)
[2020-07-16] MEDS ORDERED: GADOBUTROL 10 MMOL/10 ML VIAL IVP ONE (16:28)
--- NOTE | 2020-07-16 16:58 | PHARMACY PROGRESS NOTE ---
- Best Possible Medication History Admit Date and Time: 07/16/20 1104 Processed by: Pharmacy Medication History completed: Yes (NO MEDICATIONS) Patient Interview: Completed As the person ultimately responsible for medication therapy, providers are able to order a medication from an existing home medication list in [facility] via the "Reconcile Routine" prior to Confirmation of that medication by director sales support. Such practice is discouraged except when the physician, in their clinical judgment, deems that a medical need exists for a medication without regard to previous use.
--- NOTE | 2020-07-16 17:18 | MRI Report ---
PROCEDURE: Abdomen W/WO INDICATIONS: clarify if mass or abscess at right liver CONTRAST: IV CONTRAST: Gadavist ml: 7.5 TECHNIQUE: Coronal ultra fast SE, axial 2D spoiled GE in- and [id number]; axial breath-hold T2 fast SE. Dynam ic axial ultra fast GE during the administration of contrast; post-contrast coronal ultra fast GE or 2D spoiled GE with fat saturation from the hepatic dome to the iliac crests. Optional diffusion weig hted imaging and ADC may be performed. COMPARISON: CT abdomen pelvis 07/15/2020 and 06/30/2013 FINDINGS: Image quality: Excellent. Lung bases: Small right pleural effusion and dense right lower lobe atelectasis. Heart size is mildly enlarged. Solid organs: There is been a cholecystectomy. 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 There are numerous serpiginous, tubular fluid-filled structures along the posterior margin of the right lobe of the liver consistent with chronically dilated biliary radicle. One of the largest ducts courses in an anterior-posterior fashion and contains a tubular fi lling defect measuring 2.4 cm in length with T2 hypointensity suspicious for stone. There are other r ounded T2 hypointensities within some ducts also consistent with stones. Along the dorsal subcapsular aspect of the liver, there is extrahepatic extension of fluid with surro unding peripherally enhancing tissue. There is diffuse enhancement of the posterior retroperitoneal s urface behind the liver and along the posterior right hemidiaphragm. This ovoid fluid collection tiffany ures roughly 4.5 x 2.2 cm. In the right retroperitoneal wall, there is an ovoid soft tissue mass outside the retroperitoneum dre suring 3.3 x 2.1 cm demonstrating mild heterogeneous enhancement and no significant size change ronda red to the remote prior study. Along the left lateral most aspect of the liver, there is a small area of focal biliary dilatation wh ich appears chronic. Caudally in the liver left lobe, there is also a single dilated biliary radicle. The spleen is normal size and there is a splenic hilum splenule. The kidneys are symmetric in size wi thout hydronephrosis. The pancreas is normal without ductal dilatation. Nodes and vessels: No retroperitoneal or mesenteric adenopathy by size criteria. Aorta and inferior vena cava are normal in size. Bowel and peritoneum: Unenhanced bowel loops are normal in caliber. No free fluid. Bones and soft tissues: No ventral hernias. Bone marrow is normal in overall signal. IMPRESSION: 1. 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 The intrahepatic biliary dilatation has been present since 2013 but has become much more pronounced on the current study, likely due to an obstructing intrahepatic duct stone or cholangitis. Other non obstructing intrahepatic biliary stones are identified within these dilated ducts. 2. There has likely been a subcapsular rupture of dilated bile ducts posteriorly resulting in probabl e retrohepatic biloma. An underlying infection cannot be excluded and correlation with sepsis is anne mmended. Differential diagnosis includes cholangitis. This finding is new since 2013. 3. 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 4. Small right pleural effusion and atelectasis, presumed reactive. Reviewed by: Ingrid Costa MD on 07/16/2020 4:16 PM AKDT Approved by: Ingrid Costa MD on 07/16/2020 4:16 PM AKDT Station ID: [id number]
[2020-07-17] MEDS: SODIUM CHLORIDE FLUSH 0.9% 10 ML SYRINGE IVP SCH ×3 (00:52→17:52)
[2020-07-17 05:12] LABS: BASOPHILS % (AUTO) 0.3 %; EOSINOPHILS # (AUTO) 0.2 10^3/uL (0.0-0.7); HGB - HEMOGLOBIN 12.3 g/dL (12.0-16.0); LYMPHOCYTES # (AUTO) 1.3 10^3/uL (1.5-3.5); LYMPHOCYTES % (AUTO) 19.7 %; MEAN CORPUSCULAR HEMOGLOBIN 29.4 pg (27.0-31.0); MEAN CORPUSCULAR HGB CONC 33.1 g/dL (32.0-36.0); MEAN PLATELET VOLUME 8.9 fL (7.9-10.8); MONOCYTES # (AUTO) 0.5 10^3/uL (0.0-1.0); MONOCYTES % (AUTO) 7.9 %; NEUTROPHILS # (AUTO) 4.4 10^3/uL (1.5-6.6); NEUTROPHILS % (AUTO) 68.8 %; PLT - PLATELET COUNT 359 10^3/uL (130-450); RED BLOOD COUNT 4.18 10^6/uL (4.20-5.40); RED CELL DISTRIBUTION WIDTH 11.9 % (12.0-15.0); WHITE BLOOD COUNT 6.4 x10^3/uL (4.8-10.8)
[2020-07-17 05:27] LABS: CALCIUM 9.1 mg/dL (8.5-10.3); CREATININE 0.7 mg/dL (0.4-1.0)
[2020-07-17] MEDS: PANTOPRAZOLE 40 MG TABLET PO SCH (06:10)
[2020-07-17] MEDS: PIPERACILLIN/TAZOBACTAM 3.375 GM in SODIUM CHLORIDE 0.9% MINIBAG 100 ML IV SCH (06:11)
[2020-07-17] MEDS: amLODIPine 5 MG TABLET PO SCH (08:19)
[2020-07-17] MEDS: ENOXAPARIN 40 MG/0.4 ML SYRINGE SUBQ SCH (08:19)
[2020-07-17] MEDS: SACCHAROMYCES BOULARDII 250 MG CAPSULE PO SCH ×2 (08:19→17:52)
[2020-07-17] MEDS: ACETAMINOPHEN 325 MG TABLET PO PRN (12:48)
--- NOTE | 2020-07-17 15:26 | PROVIDER PROGRESS NOTE ---
Assessment/Plan - Problem List (1) Intrahepatic bile duct stones Assessment/Plan: 07/17 MRI of abdomen show patient had many intrahepatic bile duct stone, some were obstructed, and obstructed bile duct stone create biloma, also pt had retroperitum mass without change from previous study. Review all imaging study to the patient, answer patient questions. Patient has No fever, bili and liver enzyme is normal range, Patient has no nausea vomiting or diarrhea, Patient has normal arrange of WBC. Patient to lerated diet. Patient did report she had upper right quadrant abdominal pain on and off and radiated to right shoulder. Because the patient has no fever, WBC normal, bili is in the normal arrange, and pt tolerate regular diet, Surgeon recommended no antibiotics, antibiotics is hold now. Per surgeon report, surgeon called patient insurance company [employer] to try to transfer patient to the high level of care but could not get a response. Than I talked with our cyanide case hardener, she call [facility]. the insurance [employer] physician called me back, stated they wanted patient be transferred to [facility], they believe [facility] can take care of patient and they will arrange patient be transferred to the [facility]. (2) Abdominal pain Impression: 07/17 Patient report she had right upper abdominal pain, also radiated to right shoulder on and off, she think Tylenol is good control her pain. No we will try to transfer patient to higher level care in [place] by patient insurance company [employer]. [phone], patient report abdominal pain is better controlled, she request advance diet. She had soft bowel with good bowel sounds,Negative Aguirre sign. Clinically more suggestion Hepatic abscess. CAT scan and ultrasound reveals no clear for abscess or cystic neoplasm. Surgeon recommended MRI of liver. Continue antibiotics Zosyn, continue pain control Patient report abdominal pain but is better than before. Patient signed AMA and left [facility]. Radiologist reported to Dr. Izabela Poe Patient had intra- abdominal abscess. We still did not receive any documentation or imaging study yet. Consult with our surgeon, surgeon suggestion we do CAT scan in here right now. Started with Zosyn antibiotics, pain control, clear liquid diet, And intravenous IV fluids (3) HTN (hypertension) Conclusion/Plan: Patient had slightly elevated blood pressure, start with Norvasc, Hydralazine as needed, Continue vital signs monitor (4) Hypokalemia Conclusion/Plan: resolved (2) Abdominal pain Qualifiers: Abdominal location: left upper quadrant Qualified Code(s): R10.12 - Left upper quadrant pain - Current Meds Current Meds: Current Medications Generic Name Dose Route Start Last Admin Trade Name Freq PRN Reason Stop Dose Admin Acetaminophen 650 mg 07/15/20 14:48 07/17/20 12:48 Tylenol PO 650 mg Q4HR PRN Administration Pain 1 to 4 Amlodipine Besylate 5 mg 07/15/20 16:47 07/17/20 08:19 Norvasc PO 5 mg DAILY MEENA Administration Enoxaparin Sodium 40 mg 07/16/20 09:00 07/17/20 08:19 Lovenox SUBQ 40 mg DAILY MEENA Administration Pantoprazole Sodium 40 mg 07/16/20 07:00 07/17/20 06:10 Protonix PO 40 mg QDAC MEENA Administration Saccharomyces Boulardii 250 mg 07/16/20 09:23 07/17/20 08:19 Florastor PO 250 mg BIDWM MEENA Administration Sodium Chloride 10 ml 07/15/20 17:00 07/17/20 08:19 Normal Saline Flush 0.9% IVP Not Given 0100,0900,1700 MEENA - Lab Result Fish Bone Diagrams: 07/17/20 04:40 07/17/20 04:40 - Additional Planning My Orders: My Active Orders 07/18/20 05:00 BMP - BASIC METABOLIC PANEL [CHEM] DAILYLAB CBC - COMP BLD CT W/AUTO DIFF [HEME] DAILYLAB 07/19/20 05:00 BMP - BASIC METABOLIC PANEL [CHEM] DAILYLAB CBC - COMP BLD CT W/AUTO DIFF [HEME] DAILYLAB 07/20/20 05:00 BMP - BASIC METABOLIC PANEL [CHEM] DAILYLAB CBC - COMP BLD CT W/AUTO DIFF [HEME] DAILYLAB Subjective - Subjective Patient Reports: Feeling Better Objective Vital Signs: Vital Signs - 24 hr 07/16/20 07/16/20 07/17/20 15:56 21:00 00:48 Temperature 36.7 C 36.9 C 36.8 C Heart Rate [ 63 71 75 Brachial] Respiratory 16 24 16 Rate Blood Pressure 133/80 H 162/98 H [Left Brachial artery] Blood Pressure [Left Radial artery] Blood Pressure 155/79 H [Right Brachial artery] O2 Saturation 99 96 97 07/17/20 07/17/20 07/17/20 04:47 08:15 13:00 Temperature 37.0 C 37.0 C 37.0 C Heart Rate [ 67 70 73 Brachial] Respiratory 18 14 Rate Blood Pressure 161/89 H [Left Brachial artery] Blood Pressure 137/68 H [Left Radial artery] Blood Pressure 130/79 [Right Brachial artery] O2 Saturation 96 96 95 Oxygen O2 Source Room air I&O (Last 24 Hrs): Intake and Output Totals x24h 07/15/20 07/16/20 07/17/20 23:59 23:59 23:59 Intake Total 1500 4158.000 690 Balance 1500 4158.000 690 General: Alert, Oriented x3, No acute distress HEENT: Atraumatic Neck: Supple Lymphatic: no adenopathy Neuro: Alert, Non Focal, Oriented Times 3 Cardiovascular: Regular rate, Normal S1, Normal S2 Respiratory: Chest non-tender, No respiratory distress, Breath sounds nml Abdomen: Normal bowel sounds, Soft, No tenderness, No masses Extremities: Normal pulses - Results Results: Laboratory Results WBC 6.4 x10^3/uL (4.8-10.8) 07/17/20 04:40 RBC 4.18 10^6/uL (4.20-5.40) L 07/17/20 04:40 Hgb 12.3 g/dL (12.0-16.0) 07/17/20 04:40 Hct 37.2 % (37.0-47.0) 07/17/20 04:40 MCV 89.0 fL (81.0-99.0) 07/17/20 04:40 MCH 29.4 pg (27.0-31.0) 07/17/20 04:40 MCHC 33.1 g/dL (32.0-36.0) 07/17/20 04:40 RDW 11.9 % (12.0-15.0) L 07/17/20 04:40 Plt Count 359 10^3/uL (130-450) 07/17/20 04:40 MPV 8.9 fL (7.9-10.8) 07/17/20 04:40 Neut # (Auto) 4.4 10^3/uL (1.5-6.6) 07/17/20 04:40 Lymph # (Auto) 1.3 10^3/uL (1.5-3.5) L 07/17/20 04:40 Wetzel # (Auto) 0.5 10^3/uL (0.0-1.0) 07/17/20 04:40 Eos # (Auto) 0.2 10^3/uL (0.0-0.7) 07/17/20 04:40 Baso # (Auto) 0.0 10^3/uL (0.0-0.1) 07/17/20 04:40 Absolute Nucleated RBC 0.00 x10^3/uL 07/17/20 04:40 Nucleated RBC % 0.0 /100WBC 07/17/20 04:40 PT 13.8 secs (9.9-12.6) H 07/15/20 16:54 INR 1.3 (0.8-1.2) H 07/15/20 16:54 Sodium 138 mmol/L (135-145) 07/17/20 04:40 Potassium 3.8 mmol/L (3.5-5.0) 07/17/20 04:40 Chloride 105 mmol/L (101-111) 07/17/20 04:40 Carbon Dioxide 25 mmol/L (21-32) 07/17/20 04:40 Anion Gap 8.0 (6-13) 07/17/20 04:40 BUN 13 mg/dL (6-20) 07/17/20 04:40 Creatinine 0.7 mg/dL (0.4-1.0) 07/17/20 04:40 Estimated GFR (MDRD) 86 (>89) L 07/17/20 04:40 Glucose 118 mg/dL (70-100) H 07/17/20 04:40 Lactic Acid 1.3 mmol/L (0.5-2.2) 07/15/20 15:03 Calcium 9.1 mg/dL (8.5-10.3) 07/17/20 04:40 Magnesium 2.2 mg/dL (1.7-2.8) 07/15/20 15:03 Total Bilirubin 0.3 mg/dL (0.2-1.0) 07/15/20 15:03 AST 16 IU/L (10-42) 07/15/20 15:03 ALT 23 IU/L (10-60) 07/15/20 15:03 Alkaline Phosphatase 98 IU/L (42-121) 07/15/20 15:03 Total Protein 7.9 g/dL (6.7-8.2) 07/15/20 15:03 Albumin 3.7 g/dL (3.2-5.5) 07/15/20 15:03 Globulin 4.2 g/dL (2.1-4.2) 07/15/20 15:03 Albumin/Globulin Ratio 0.9 (1.0-2.2) L 07/15/20 15:03 Lipase 37 U/L (22-51) 07/15/20 15:03 - Procedures Procedures: Procedures INSPECTION OF LOWER INTESTINAL TRACT, ENDO (10/05/17) ABX Reporting Has patient been on IV antibiotics over the past 48 hours?: No Current Medications - Current Medications Current Medications: Active Medications Acetaminophen (Tylenol) 650 mg PO Q4HR PRN PRN Reason: Pain 1 to 4 Last Admin: 07/17/20 12:48 Dose: 650 mg Documented by: Amlodipine Besylate (Norvasc) 5 mg PO DAILY [facility] Last Admin: 07/17/20 08:19 Dose: 5 mg Documented by: Enoxaparin Sodium (Lovenox) 40 mg SUBQ DAILY [facility] Last Admin: 07/17/20 08:19 Dose: 40 mg Documented by: Hydralazine HCl (Apresoline Inj) 10 mg IVP Q4H PRN PRN Reason: Hypertensive Emergency Morphine Sulfate (Morphine (Carpuject)) 2 mg IVP Q2HR PRN PRN Reason: Pain 8 to 10 Ondansetron HCl (Zofran Inj) 4 mg IVP Q6HR PRN PRN Reason: Nausea / Vomiting Oxycodone HCl (Roxicodone) 5 mg PO Q4HR PRN PRN Reason: Pain 5 to 7 Pantoprazole Sodium (Protonix) 40 mg PO QDAC [facility] Last Admin: 07/17/20 06:10 Dose: 40 mg Documented by: Saccharomyces Boulardii (Florastor) 250 mg PO BIDWM [facility] Last Admin: 07/17/20 08:19 Dose: 250 mg Documented by: Sodium Chloride (Normal Saline Flush 0.9%) 10 ml IVP PRN PRN PRN Reason: NEEDED PER PROVIDER ORDERS Sodium Chloride (Normal Saline Flush 0.9%) 10 ml IVP 0100,0900,1700 MEENA Last Admin: 07/17/20 08:19 Dose: Not Given Documented by: No Known Home Medications 07/16/20
--- NOTE | 2020-07-17 18:14 | PROVIDER PROGRESS NOTE ---
Progress Note Subjective: See surgical consultation within the EMR. Patient status post MRI per below. Pending consultation with [facility] gastroenterology to discuss possible necessary transfer. Patient has [employer] insurance which may be obstacle to that end. No nausea, no vomiting. Intermittent abdominal pain. Denies fevers. Tolerating diet. Objective: Afebrile vital signs are hemodynamically acceptable Alert awake and oriented x3 no acute distress PERRLA, extraocular movements intact Lungs clear to auscultation bilaterally no respiratory distress Regular rate and rhythm palpable radial pulses Abdomen soft nontender nondistended no rebound no guarding Cranial nerves II through XII grossly intact, no sensorimotor deficits. Imaging: MRI abdomen pelvis. 1. There is chronic diffuse and irregular biliary dilatation and the hypoplastic posterior right liver. The intra-hepatic biliary dilation Tatian has been present since 2013 but has become much more pronounced on the current study, likely due to an obstructing intrahepatic duct stone or cholangitis. Other nonobstructing intrahepatic biliary stones are identified within these dilated ducts 2. There is likely been a subcapsular rupture of dilated bile ducts posteriorly resulting in proximal select proximal probable retrohepatic biloma. An underlying infection cannot be excluded and correlation with sepsis is recommended. Differential diagnosis includes cholangitis. This finding is new since 2013. 3. There is chronic right retroperitoneal wall mass measuring 3.3 cm without change since 2013. 4. Small right pleural effusion and atelectasis presumed reactive. Assessment and plan: 60-year-old female with remote history of cholecystectomy at which time she was likely placed for a T-tube necessarily secondary to common bile duct exploration for extensive cholelithiasis and choledocholithiasis. Patient appears to have extensive intrahepatic ductal stones, for which the consequence of one has been a chronic cholangitis with associated rupture. This appears to have led to a retrohepatic biloma as seen on her historic CAT scan. The patient is afebrile, normal for leukocytosis, and does not need any further antibiotics. Given the complexity of this presentation transfer and/or consultation to a referral center is indicated. This was discussed with the hospitalist service. No leukocytosis. Liver function tests normal. (1) GI - IVF. GI ppx. Hepatology and/or hepatobiliary surgical consultation. Have placed several calls to [facility] for which we are awaiting callback to discuss with specialty services. Patient may necessarily require prior authorization with [employer] to determine where she would most appropriately be transferred based on her health care plan. Regardless this is a complex pathophysiology which could have long-term devastating consequences with consequential liver failure if left untreated.. Opiate sparring analgesia. (2) SURGERY - Nothing to do from our perspective acutely. (3) Renal/Lytes - continue IVF. Renal indices within normal limits. (4) Respiratory - O2 as necessary. (5) Heme - Will continue with DVT ppx. (6) Cardiovascular - HD acceptable. (7) Neuro - Opiate sparring analgesia. Please note that voice recognition software was used to transcribe this note and inadvertent errors might persist in spite of review and editing. I am obliged to you for your attention. I am thankful to you for allowing me to participate with you in this care of this patient.
[2020-07-18] MEDS: SODIUM CHLORIDE FLUSH 0.9% 10 ML SYRINGE IVP SCH ×2 (00:47→08:13)
[2020-07-18 05:12] LABS: BASOPHILS # (AUTO) 0.1 10^3/uL (0.0-0.1); BASOPHILS % (AUTO) 0.8 %; EOSINOPHILS # (AUTO) 0.2 10^3/uL (0.0-0.7); HGB - HEMOGLOBIN 12.5 g/dL (12.0-16.0); LYMPHOCYTES # (AUTO) 1.7 10^3/uL (1.5-3.5); LYMPHOCYTES % (AUTO) 21.8 %; MEAN CORPUSCULAR HEMOGLOBIN 29.6 pg (27.0-31.0); MEAN CORPUSCULAR HGB CONC 33.1 g/dL (32.0-36.0); MEAN CORPUSCULAR VOLUME 89.6 fL (81.0-99.0); MEAN PLATELET VOLUME 8.9 fL (7.9-10.8); MONOCYTES # (AUTO) 0.6 10^3/uL (0.0-1.0); MONOCYTES % (AUTO) 8.4 %; NEUTROPHILS % (AUTO) 65.5 %; PLT - PLATELET COUNT 375 10^3/uL (130-450); RED BLOOD COUNT 4.22 10^6/uL (4.20-5.40); WHITE BLOOD COUNT 7.6 x10^3/uL (4.8-10.8)
[2020-07-18 05:13] LABS: CALCIUM 9.2 mg/dL (8.5-10.3); CREATININE 0.7 mg/dL (0.4-1.0)
[2020-07-18] MEDS: PANTOPRAZOLE 40 MG TABLET PO SCH (06:21)
[2020-07-18] MEDS: SACCHAROMYCES BOULARDII 250 MG CAPSULE PO SCH (08:11)
[2020-07-18] MEDS: amLODIPine 5 MG TABLET PO SCH (08:11)
[2020-07-18] MEDS: ENOXAPARIN 40 MG/0.4 ML SYRINGE SUBQ SCH (08:13)
--- NOTE | 2020-07-18 13:48 | DISCHARGE SUMMARY ---
"Discharge Summary Admit Date: 07/15/20 Discharge Date: 07/18/20 Discharging Provider: Dr Edith Cartwright Primary Care Provider: Dr Sharona Jenkins Code Status: Attempt Resuscitation Condition at Discharge: Serious Discharge Disposition: 02 Transfer Acute Care Hosp Discharge Facility Name: [facility] - [facility] History of Present Illness: From the admission H&P of Francois Blackburn FIELD STAFF: This is a 60 years old female with a past medical history significant for cholelithiasis, who was directly admitted from Dr. Izabela Jenkins's office, with complaint of abdominal pain. Patient reported she went to [facility] for abdominal pain. She reported they did a CT scan to evaluate her abdomen and told her she may have cancer and advised patient be transferred to the [facility] for further management. Patient declined and left that hospital AMA, she wanted to see her primary care provider, Dr. Izabela Mcduffie. The radiology report was that she may have abscess, thus Dr. Izabela Jenkins advised her to go to the hospital by direction admission. Patient reported she has abdominal pain on and off, and denies fever or chills, nausea, vomiting, diarrhea or any worsening with eating. She reported her pain occurs in the right upper quadrant, more intense when she takes a deep breath. We are still waiting for Dr. Izabela Jenkins's report of pt's discharge summary from [facility], their CT scan report and primary care visit report. Consult with surgeon has already been requested and surgeon suggested to get a repeat CT scan with contrast, in our hospital now. Patient is being admitted for further medical management. Discussed the care goal with the patient, patient requests full code. - CONSULTS | PROCEDURES Consultations: Dr Hardeep Jones, general surgery - HOSPITAL COURSE Hospital Course: (1) Intrahepatic bile duct stones MRI of abdomen showed patient had many intrahepatic bile duct stones, some were obstructed, and an obstructed bile duct stone, and also pt had a retroperitoneal mass without change from previous study. She had no fever, normal bili, liver enzyme and WBC. Surgeon recommended no antibiotics. Patient tolerated a diet. Patient did report she had upper right quadrant abdominal pain on and off which radiated to right shoulder. The surgeon felt she required surgery, too complex to perform here and her [employer] insurance company was contacted for transfer. [place] wanted patient to be transferred to [facility], but their surgeon also felt the case was too complex. There were many calls involved to have her accepted for transfer. She was eventually authorized to be transferred and was accepted at [facility]. (2) Biloma Imaging also reported a retro-hepatic biloma, presumed to be due to a ruptured duct. (3) Abdominal pain As above. (4) HTN (hypertension) Patient had slightly elevated blood pressure here, was started on oral Norvasc, with iv Hydralazine ordered as needed. (5) Hypokalemia Replaced and was monitored in daily labs. - ALLERGIES Allergies/Adverse Reactions: Allergies Allergy/AdvReac Type Severity Reaction Status Date / Time lisinopril AdvReac Respiratory Verified 11/07/18 14:48 - MEDICATIONS Home Medications: Ambulatory Orders Medication Instructions Recorded Confirmed No Known Home Medications 07/16/20 07/16/20 - PHYSICAL EXAM AT DISCHARGE General Appearance: positive: No acute distress, Alert Eyes Bilateral: positive: Normal inspection, EOMI ENT: positive: ENT inspection nml, No signs of dehydration Respiratory: positive: No respiratory distress Cardiovascular: positive: Regular rate & rhythm Abdomen: positive: Non-tender, No distention Skin: positive: Warm, Dry Extremities: positive: No pedal edema Neurologic/Psychiatric: positive: Oriented x3 (Non-focal) - LABS Result Diagrams: 07/18/20 04:35 07/18/20 04:35 - DIAGNOSTIC IMAGING Diagnostic Imaging Results: Final report reviewed - FOLLOW UP Follow Up: See PCP after hospitalization at [facility]. - TIME SPENT Time Spent in Discharge (Minutes): 90"
--- NOTE | 2020-07-18 13:48 | Discharge Plan ---
Discharge Plan Problem Reviewed?: Yes Disposition: 02 Transfer Acute Care Hosp Condition: Serious No Smoking: If you smoke, Please STOP! Call for help. Follow-up with: Sharona Jenkins DO [Primary Care Provider] -
[2020-07-18 14:55] VITALS: BP 143/76
== END 2020-07-18 15:25 | disposition short-term general hospital (02) ==
LOC: MS2 14:15 → UNDOADMOB 14:15 → INTOOBSV 14:15 → MS2 07-16 11:04
PROVIDERS: ADMIT Nurse Practitioner Gerontology; ATTEND Internal Medicine
DX: K80.51 Calculus of bile duct without cholangitis or cholecystitis with obstruction (principal); R19.01 Right upper quadrant abdominal swelling, mass and lump; I10 Essential (primary) hypertension; E87.6 Hypokalemia; Z90.49 Acquired absence of other specified parts of digestive tract; E78.70 Disorder of bile acid and cholesterol metabolism, unspecified; K83.8 Other specified diseases of biliary tract
CPT/HCPCS: 36415; 74177; 74183; 76705; 80048; 80053; 83605; 83690; 83735; 85025; 85610; 96365; 96366; 96372; A9270; A9585; G0378; J1650; Q9967; 96367

== ENCOUNTER 2020-07-18 15:30 | Outpatient (CLI) | payer OTHER | END 2020-07-18 15:31 | disposition short-term general hospital (02) | LOC: EMS 15:30 | PROVIDERS: ATTEND Surgery | DX: K83.8 Other specified diseases of biliary tract (principal) | CPT/HCPCS: A0425; A0428 ==

== ENCOUNTER 2020-08-24 15:18 | Outpatient (CLI) | payer OTHER ==
[2020-08-24 18:07] LABS: ALBUMIN 3.9 g/dL (3.2-5.5); ALBUMIN/GLOBULIN RATIO 1.1 (1.0-2.2); ALKALINE PHOSPHATASE 70 IU/L (42-121); ALT ALANINE AMINOTRANSFERASE 12 IU/L (10-60); AST ASPARTATE AMINOTRANSFERASE 15 IU/L (10-42); BILIRUBIN,TOTAL 0.4 mg/dL (0.2-1.0); BUN - BLOOD UREA NITROGEN 10 mg/dL (6-20); CALCIUM 9.2 mg/dL (8.5-10.3); CARBON DIOXIDE - CO2 24 mmol/L (21-32); CHLORIDE 104 mmol/L (101-111); CHOL/HDL RATIO 2.9 (<4.4); CHOLESTEROL 206 mg/dL; CREATININE 0.7 mg/dL (0.4-1.0); GLUCOSE 110 mg/dL (70-100); HDL CHOLESTEROL 70 mg/dL; LDL CHOLESTEROL,CALCULATED 90 mg/dL; LDL/HDL RATIO 1.3 (<4.4); SODIUM 138 mmol/L (135-145); TOTAL PROTEIN 7.6 g/dL (6.7-8.2); VLDL CHOLESTEROL 46 mg/dL
[2020-08-24 18:34] LABS: HEMOGLOBIN A1c% 5.4 % (4.27-6.07)
== END 2020-08-24 23:59 | disposition home or self-care (01) ==
LOC: LAB.WCP 15:18
PROVIDERS: ATTEND Family Medicine
DX: I10 Essential (primary) hypertension (principal); R73.01 Impaired fasting glucose
CPT/HCPCS: 36415; 80053; 80061; 83036; 83721

== ENCOUNTER 2021-04-06 12:56 | Outpatient (CLI) | payer OTHER ==
[2021-04-06] MEDS ORDERED: IOVERSOL 320 100 ML VIAL IVP ONE ×2 (13:03→14:42)
--- NOTE | 2021-04-06 16:06 | CT Report ---
PROCEDURE: ABDOMEN W/WO INDICATIONS: LIVER MASS CONTRAST: IV CONTRAST: Optiray 320 ml: 100 PO CONTRAST: *NO PO CONTRAST TECHNIQUE: Noncontrast 5 mm thick sections acquired from the diaphragms to the symphysis. 5 mm coronal and sagi ttal reformats were then performed. For radiation dose reduction, the following was used: automated exposure control, adjustment of mA and/or kV according to patient size. COMPARISON: MRI 07/16/2020, CT 07/15/2020 FINDINGS: Image quality: Excellent. Lung bases: Lung bases are clear. Heart size is normal. Liver: Surgical changes or calcification of a more extended right posterior hepatectomy. There is be en interval resolution of a subcapsular heterogeneous peripherally enhancing fluid collection and pos terior perihepatic fluid collection. There is a small amount of mild smooth residual soft tissue magnus g the posterior lateral surface of the liver. More caudal, there is a stable ovoid circumscribed 3.5 cm intercostal posterior abdominal wall nodule with slight mass effect on the right pararenal fat. Left hepatic lobe hypertrophy. No hepatic mass. Moderate central intrahepatic biliary dilatation. No common duct dilatation. Surgically absent gallbladder. Other solid organs: Spleen is normal in size and enhancement. There is a splenule in the hilum. Panc reas enhances normally. Kidneys are normal in size and enhancement. No hydronephrosis or nephrolith iasis. Peritoneum and bowel: There is fatty infiltration in the wall of the colon. Small bowel and stomach are unremarkable. There is mild fat stranding in the anterior perihepatic epigastric fat No free flu id or air. Nodes and vessels: No retroperitoneal or mesenteric adenopathy by size criteria. Aorta and inferior vena cava are normal in size. Miscellaneous: No ventral hernias. There is mild abdominal wall inflammation from a healing transve rse epigastric incision. Bones: No suspicious bony lesions. No vertebral body compression fractures. IMPRESSION: 1. Interval further surgical change along the posterior right hepatic lobe and healing of a prior com plex perihepatic and subhepatic fluid collection. 2. There is a residual smooth nodule in the right posterior body wall outside the retroperitoneal spa ce. 3. There are mild inflammatory changes in the anterior peritoneal fat and subcutaneous fat of healing transverse incision. No adjacent fluid collection. 4. Fatty infiltration of the colon wall. Correlate with any changes in bowel habits. Reviewed by: Ingrid Costa MD on 04/06/2021 4:05 PM PDT Approved by: Ingrid Costa MD on 04/06/2021 4:05 PM PDT Station ID: [id number]
== END 2021-04-06 12:57 | disposition home or self-care (01) ==
LOC: DI 12:56
PROVIDERS: ATTEND Family Medicine
DX: K76.89 Other specified diseases of liver (principal)
CPT/HCPCS: 74170; Q9967

== ENCOUNTER 2021-09-26 13:59 | Outpatient (CLI) | payer OTHER ==
[2021-09-26] MEDS ORDERED: IOVERSOL 320 100 ML VIAL IVP ONE (14:26)
[2021-09-26 14:39] LABS: CREATININE 0.9 mg/dL (0.4-1.0)
== END 2021-09-26 14:00 | disposition home or self-care (01) ==
LOC: DI 13:59
PROVIDERS: ATTEND Family Medicine
DX: K76.89 Other specified diseases of liver (principal)
CPT/HCPCS: 36415; 82565

== ENCOUNTER 2021-10-01 10:27 | Outpatient (CLI) | payer OTHER ==
[2021-10-01 13:19] LABS: BASOPHILS % (AUTO) 0.4 %; EOSINOPHILS # (AUTO) 0.2 10^3/uL (0.0-0.7); EOSINOPHILS % (AUTO) 3.4 %; HCT - HEMATOCRIT 40.4 % (37.0-47.0); HGB - HEMOGLOBIN 13.6 g/dL (12.0-16.0); LYMPHOCYTES # (AUTO) 1.7 10^3/uL (1.5-3.5); LYMPHOCYTES % (AUTO) 31.9 %; MEAN CORPUSCULAR HEMOGLOBIN 29.1 pg (27.0-31.0); MEAN CORPUSCULAR HGB CONC 33.7 g/dL (32.0-36.0); MEAN CORPUSCULAR VOLUME 86.3 fL (81.0-99.0); MEAN PLATELET VOLUME 10.6 fL (7.9-10.8); MONOCYTES # (AUTO) 0.4 10^3/uL (0.0-1.0); MONOCYTES % (AUTO) 7.6 %; NEUTROPHILS % (AUTO) 56.3 %; PLT - PLATELET COUNT 215 10^3/uL (130-450); RED BLOOD COUNT 4.68 10^6/uL (4.20-5.40); RED CELL DISTRIBUTION WIDTH 13.2 % (12.0-15.0); WHITE BLOOD COUNT 5.2 x10^3/uL (4.8-10.8)
[2021-10-01 13:33] LABS: THYROID STIMULATING HORMONE 0.95 uIU/mL (0.34-5.60)
[2021-10-01 13:35] LABS: ALBUMIN 4.1 g/dL (3.2-5.5); ALBUMIN/GLOBULIN RATIO 1.1 (1.0-2.2); ALKALINE PHOSPHATASE 98 IU/L (42-121); ALT ALANINE AMINOTRANSFERASE 17 IU/L (10-60); AST ASPARTATE AMINOTRANSFERASE 22 IU/L (10-42); BILIRUBIN,TOTAL 0.6 mg/dL (0.2-1.0); BUN - BLOOD UREA NITROGEN 11 mg/dL (6-20); CARBON DIOXIDE - CO2 23 mmol/L (21-32); CHLORIDE 105 mmol/L (101-111); CK- CREATINE KINASE 169 IU/L (22-269); CREATININE 0.8 mg/dL (0.4-1.0); GFR - MDRD 73 (>89); GLUCOSE 114 mg/dL (70-100); LIPASE 36 U/L (22-51); POTASSIUM 3.3 mmol/L (3.5-5.0); SODIUM 139 mmol/L (135-145); TOTAL PROTEIN 7.9 g/dL (6.7-8.2); URIC ACID 5.7 mg/dL (2.6-7.2)
[2021-10-01 14:20] LABS: CRP - C-REACTIVE PROTEIN < 1.0 mg/dL (0-1.0)
== END 2021-10-01 23:59 | disposition home or self-care (01) ==
LOC: LAB.WCP 10:27
PROVIDERS: ATTEND Family Medicine
DX: R16.0 Hepatomegaly, not elsewhere classified (principal); M79.10 Myalgia, unspecified site
CPT/HCPCS: 36415; 80053; 82550; 83690; 84443; 84550; 85025; 85651; 86140

== ENCOUNTER 2021-10-05 15:16 | Outpatient (CLI) | payer OTHER ==
--- NOTE | 2021-10-05 16:49 | XRAY Report ---
PROCEDURE: Lumbar Spine 2 View INDICATIONS: LOW BACK PX TECHNIQUE: 3 views of the lumbar spine were acquired. COMPARISON: None. FINDINGS: Bones: 5 [id number] vertebrae are present. There is normal bony alignment. No vertebral body compression fractures. No suspicious bony lesions. Mild degenerative endplate changes are seen at m ultiple levels. Mild facet hypertrophy is seen at L4-5 and L5-S1. Soft tissues: Overlying bowel gas pattern is normal. No suspicious soft tissue calcifications. Surg ical clips are seen in the right upper quadrant. IMPRESSION: No acute osseous abnormality. Mild multilevel spondylosis. Reviewed by: Alphonso Rivera MD on 10/05/2021 4:47 PM PST Approved by: Alphonso Rivera MD on 10/05/2021 4:47 PM PST Station ID: [id number]
== END 2021-10-05 15:17 | disposition home or self-care (01) ==
LOC: DI.N 15:16
PROVIDERS: ATTEND Family Medicine
DX: M79.606 Pain in leg, unspecified (principal); M79.604 Pain in right leg; M47.816 Spondylosis without myelopathy or radiculopathy, lumbar region

== ENCOUNTER 2021-11-13 16:09 | Outpatient (CLI) | payer OTHER ==
--- NOTE | 2021-11-13 18:13 | Ultrasound Report ---
PROCEDURE: Duplex Lwr Ext Arterial Bilat INDICATIONS: CLAUDICATION BILATERAL TECHNIQUE: Color and pulse Doppler interrogation was performed of both lower extremity arterial systems, with im age documentation. COMPARISON: None FINDINGS: Normal-appearing, triphasic and biphasic waveforms are seen. No focal increased flow velocity is seen to suggest a hemodynamically significant stenosis. No significant grayscale abnormality is seen. IMPRESSION: No hemodynamically significant stenosis is detected. Reviewed by: Fabian Irwin MD on 11/13/2021 5:12 PM [facility] Approved by: Fabian Irwin MD on 11/13/2021 5:12 PM [facility] Station ID: [id number]
== END 2021-11-13 16:10 | disposition home or self-care (01) ==
LOC: DI 16:09
PROVIDERS: ATTEND Family Medicine
DX: I73.9 Peripheral vascular disease, unspecified (principal)
CPT/HCPCS: 93925

== ENCOUNTER 2022-06-24 11:50 | Outpatient (CLI) | payer OTHER ==
[2022-06-24 17:48] LABS: BASOPHILS % (AUTO) 0.6 %; EOSINOPHILS # (AUTO) 0.1 10^3/uL (0.0-0.7); EOSINOPHILS % (AUTO) 2.4 %; HCT - HEMATOCRIT 40.2 % (37.0-47.0); HGB - HEMOGLOBIN 13.5 g/dL (12.0-16.0); LYMPHOCYTES # (AUTO) 1.6 10^3/uL (1.5-3.5); LYMPHOCYTES % (AUTO) 32.5 %; MEAN CORPUSCULAR HEMOGLOBIN 29.7 pg (27.0-31.0); MEAN CORPUSCULAR HGB CONC 33.6 g/dL (32.0-36.0); MEAN CORPUSCULAR VOLUME 88.4 fL (81.0-99.0); MEAN PLATELET VOLUME 11.4 fL (7.9-10.8); MONOCYTES # (AUTO) 0.4 10^3/uL (0.0-1.0); MONOCYTES % (AUTO) 7.7 %; NEUTROPHILS # (AUTO) 2.8 10^3/uL (1.5-6.6); NEUTROPHILS % (AUTO) 56.6 %; PLT - PLATELET COUNT 200 10^3/uL (130-450); RED BLOOD COUNT 4.55 10^6/uL (4.20-5.40)
[2022-06-24 18:15] LABS: ALBUMIN 4.1 g/dL (3.2-5.5); ALBUMIN/GLOBULIN RATIO 1.2 (1.0-2.2); ALKALINE PHOSPHATASE 80 IU/L (42-121); ALT ALANINE AMINOTRANSFERASE 18 IU/L (10-60); AST ASPARTATE AMINOTRANSFERASE 21 IU/L (10-42); BILIRUBIN,TOTAL 0.9 mg/dL (0.2-1.0); BUN - BLOOD UREA NITROGEN 11 mg/dL (6-20); CALCIUM 9.3 mg/dL (8.5-10.3); CARBON DIOXIDE - CO2 25 mmol/L (21-32); CHLORIDE 103 mmol/L (101-111); CHOL/HDL RATIO 2.6 (<4.4); CHOLESTEROL 198 mg/dL; CREATININE 0.8 mg/dL (0.4-1.0); GFR - MDRD 73 (>89); GLUCOSE 90 mg/dL (70-100); HDL CHOLESTEROL 77 mg/dL; LDL CHOLESTEROL,CALCULATED 108 mg/dL; LDL/HDL RATIO 1.4 (<4.4); POTASSIUM 3.7 mmol/L (3.5-5.0); SODIUM 139 mmol/L (135-145); TOTAL PROTEIN 7.6 g/dL (6.7-8.2); TRIGLYCERIDES 66 mg/dL; VLDL CHOLESTEROL 13 mg/dL
[2022-06-24 18:23] LABS: THYROID STIMULATING HORMONE 1.24 uIU/mL (0.34-5.60)
[2022-06-24 21:04] LABS: ESTIMATED AVERAGE GLUCOSE 120 mg/dL (70-100); HEMOGLOBIN A1c% 5.8 % (4.27-6.07)
== END 2022-06-24 11:51 | disposition home or self-care (01) ==
LOC: LAB.N 11:50
PROVIDERS: ATTEND Physician Assistant
DX: E87.6 Hypokalemia (principal); I10 Essential (primary) hypertension; M79.605 Pain in left leg; M79.604 Pain in right leg; M79.10 Myalgia, unspecified site
CPT/HCPCS: 36415; 80053; 80061; 82607; 83036; 83721; 84443; 85025

== ENCOUNTER 2022-12-08 15:35 | Outpatient (CLI) | payer OTHER | END 2022-12-08 15:36 | disposition home or self-care (01) | LOC: DI.N 15:35 | DX: Z53.9 Procedure and treatment not carried out, unspecified reason (principal) ==

== ENCOUNTER 2023-01-06 08:46 | Outpatient (CLI) | payer OTHER ==
--- NOTE | 2023-01-09 11:44 | Ultrasound Report ---
LIMITED ULTRASOUND OF RIGHT BREAST AND AXILLA: 01/06/2023 CLINICAL: Palpable right breast lump. Comparison is made to exam dated: 10/05/2018 mammogram - [facility]. Color flow and real-time ultrasound of the right breast 9-10 o'clock, and axilla regions were perform ed. Arguello scale images of the real-time examination were reviewed. There is a 2 cm x 1.8 cm x 1.7 cm irregular mass with an indistinct margin in the right breast at 10 o'clock middle depth 4 cm from the nipple. This irregular mass is slightly hypoechoic with a hyperec hoic vague halo, and dense posterior acoustic shadowing. This correlates as palpated and with mammog anika findings. There also is a 0.7 cm x 0.6 cm x 0.6 cm irregular mass with an indistinct and microlobulated margin in the right breast at 9 o'clock posterior depth 5 cm from the nipple. This correlates as palpated a nd with mammography findings. Color flow imaging demonstrates that there is increased vascularity. This is about 2 cm away from the other mass and palpated as one whole area. No significant abnormalities were seen sonographically in the right axilla. IMPRESSION: SUSPICIOUS OF MALIGNANCY The 2 cm x 1.8 cm x 1.7 cm irregular mass in the right breast at 10 o'clock middle depth is at a mode rate suspicion for malignancy. An ultrasound guided biopsy is recommended. The 0.7 cm x 0.6 cm x 0.6 cm irregular mass in the right breast at 9 o'clock posterior depth is at a moderate suspicion for malignancy. This should be treated as a satellite lesion and included in any subsequent excision. Findings and recommendations were discussed with the patient in person by Dr. Rivera at time of exam . This exam was interpreted at Station ID: [id number]. Electronically Signed By: Ingrid bergman/:01/06/2023 11:29:55 Ultrasound BI-RADS: 4b Moderate suspicion of malignancy BI-RADS CATEGORY: (4b) - Mod Susp Biopsy [id number] Immediate follow-up LATERALITY: (R)
--- NOTE | 2023-01-09 11:44 | Mammography Report ---
BILATERAL DIGITAL DIAGNOSTIC MAMMOGRAM 3D/2D: 01/06/2023 CLINICAL: Palpable right breast lump. Diffuse right breast pain. Due for bilateral imaging. Comparison is made to exam dated: 10/05/2018 mammogram - [facility]. Both breasts are heterogeneously dense, which may obscure small masses (category c / 51-75% glandular tissue). There is a 1 cm irregular high density mass with a spiculated margin in the right breast at 8 o'clock middle depth. There also is a 1.5 cm irregular high density mass with a spiculated margin in the right breast at 10 o'clock middle depth. Either one of these may correspond to the palpable abnormality. No visible right axillary adenopathy. No other significant masses, calcifications, or other findings are seen in either breast. Left mammo gram is stable. IMPRESSION: INCOMPLETE: NEEDS ADDITIONAL IMAGING EVALUATION The 1 cm irregular high density mass in the right breast at 8 o'clock middle depth is indeterminate. The irregular high density mass in the right breast at 10 o'clock middle depth is indeterminate. Either one of these findings may correspond to the patient's palpable abnormality. An ultrasound of this area is recommended. This was performed immediately following this exam. Based on Tyrer-Cuzick model (a risk assessment model), the patient's lifetime risk is 29.6% and her 1 0 year risk is 12.8%. If a patient has an elevated risk, a more comprehensive evaluation should be co nsidered and/or a referral to a genetic counselor. The [place] [employer], [employer], and NCCN Guidelines advise the consideration of Breast MRI as an adjunct to screening mammo graphy in patients whose "Lifetime risk to develop breast cancer" is 20% or higher. This exam was interpreted at Station ID: [id number]. NOTE: For mammograms, a report in lay terms will be sent to the patient. Approximately 15% of breast malignancies will not be visualized mammographically. In the management of a palpable breast mass, a negative mammogram must not discourage biopsy of a clinically suspicious lesion. Electronically Signed By: Ingrid bergman/:01/06/2023 09:39:32 ACR BI-RADS Category 0: Incomplete 3340F PARENCHYMAL PATTERN: (D) - The breast(s) demonstrate(s) heterogeneously dense fibroglandular parenchy ma. BI-RADS CATEGORY: (0) - 0 Ultrasound [id number] Immediate follow-up LATERALITY: (B)
== END 2023-01-06 08:47 | disposition home or self-care (01) ==
LOC: DI 08:46
PROVIDERS: ATTEND Physician Assistant
DX: N63.11 Unspecified lump in the right breast, upper outer quadrant (principal); N63.15 Unspecified lump in the right breast, overlapping quadrants

== ENCOUNTER 2023-01-11 09:44 | Outpatient (CLI) | payer OTHER ==
[~2023-01-11 09:44] MED LIST: LIDOCAINE 1%-EPI 1:100000 20 ML MDV ONE; LIDOCAINE-MPF 1% 5 ML VIAL ONE
[2023-01-11] MEDS ORDERED: LIDOCAINE-MPF 1% 5 ML VIAL TD ONE (12:35)
[2023-01-11] MEDS ORDERED: LIDOCAINE 1%-EPI 1:100000 20 ML MDV SUBQ ONE (12:35)
--- NOTE | 2023-01-12 10:14 | Mammography Report ---
UNILATERAL RIGHT DIGITAL DIAGNOSTIC MAMMOGRAM POST-PROCEDURE IMAGING FOR MARKER PLACEMENT: 01/11/2023 CLINICAL: Post right breast ultrasound biopsy clip placement imaging. Comparison is made to exams dated: 01/06/2023 mammogram and 10/05/2018 mammogram - [facility]. Two biopsy clips are seen in the right breast at the biopsy sites. IMPRESSION: POST PROCEDURE MAMMOGRAM FOR MARKER PLACEMENT Biopsy clips seen in the right breast at the biopsy sites. This exam was interpreted at Station ID: [id number]. NOTE: For mammograms, a report in lay terms will be sent to the patient. Approximately 15% of breast malignancies will not be visualized mammographically. In the management of a palpable breast mass, a negative mammogram must not discourage biopsy of a clinically suspicious lesion. Electronically Signed By: Victorino Arreola M.D. fx/:01/11/2023 14:02:28 ACR BI-RADS Category Post-procedure mammogram for marker placement PARENCHYMAL PATTERN: (D) - The breast(s) demonstrate(s) heterogeneously dense fibroglandular fortunato rosas. BI-RADS CATEGORY: () - Unspecified - other recall n/a LATERALITY: (B)
--- NOTE | 2023-01-13 16:24 | Ultrasound Report ---
ULTRASOUND GUIDED BIOPSY RIGHT BREAST WITH POST MAMMOGRAPHIC AND ULTRASOUND IMAGIN01/11/2023 CLINICAL: Right breast mass. PATIENT CONSENT: Risks (minor bleeding, infection, vasovagal reaction and repeat procedure), benefits and alternatives were explained to the patient and written informed consent was obtained. Correlation is made to exams dated: 01/06/2023 ultrasound, 01/06/2023 mammogram, and 10/05/[address] [facility]. An ultrasound guided biopsy using real-time ultrasound was performed for the oval mass located in the right breast at 10 o'clock anterior depth. This was described on the previous ultrasound report. T he skin was prepped in the usual manner. Local anesthetic was administered to the access site. The abnormality was approached from the lateral aspect. A 16 gauge biopsy needle was placed adjacent to the abnormality under ultrasound guidance. Once the needle was documented to be in the correct locat ion, five specimens were obtained using a BARD biopsy device. Post procedure mammographic and ultras ound imaging demonstrates the clip at the targeted area. The specimens were sent to the laboratory f or pathological analysis. IMPRESSION: ULTRASOUND GUIDED BIOPSY MALIGNANT Ultrasound guided biopsy of the mass in the right breast anterior depth was successful. Pathology in dicates malignant invasive ductal carcinoma (ID). Pathology results are concordant with imaging find ings. A surgical/oncologic consultation is recommended. Results and recommendations will be communi cated to the ordering provider's office. This exam was interpreted at Station ID: [id number]. Victorino Costa M.D. fx,krg/:01/13/2023 14:24:34 BI-RADS CATEGORY: () - Unspecified - other recall n/a LATERALITY: (B)
--- NOTE | 2023-01-13 16:24 | Ultrasound Report ---
ULTRASOUND GUIDED BIOPSY RIGHT BREAST WITH MARKING DEVICE INSERTED AND POST MAMMOGRAPHIC AND ULTRASOU ND IMAGIN01/11/2023 CLINICAL: Right breast mass. PATIENT CONSENT: Risks (minor bleeding, infection, vasovagal reaction and repeat procedure), benefits and alternatives were explained to the patient and written informed consent was obtained. Correlation is made to exams dated: 01/06/2023 ultrasound, 01/06/2023 mammogram, and 10/05/2018 mammog [facility]. An ultrasound guided biopsy using real-time ultrasound was performed for the oval mass located in the right breast at 9 o'clock middle depth. This was described on the previous ultrasound report. The skin was prepped in the usual manner. Local anesthetic was administered to the access site. The abn ormality was approached from the lateral aspect. A 16 gauge biopsy needle was placed adjacent to the abnormality under ultrasound guidance. Once the needle was documented to be in the correct location , five specimens were obtained using a BARD biopsy device. A clip was inserted into the biopsy cavit y. Post procedure mammographic and ultrasound imaging demonstrates the location device at the target ed area. The specimens were sent to the laboratory for pathological analysis. IMPRESSION: ULTRASOUND GUIDED BIOPSY MALIGNANT Ultrasound guided biopsy of the mass in the right breast at 9 o'clock middle depth was successful. P athology indicates malignant invasive ductal carcinoma (ID). Pathology results are concordant with [place] findings. A surgical/oncologic consultation is recommended. Results and recommendations will be communicated to the ordering provider's office. This exam was interpreted at Station ID: [id number]. Victorino syed,madalyn/:01/13/2023 14:23:34 BI-RADS CATEGORY: () - Unspecified - other recall n/a LATERALITY: (B)
== END 2023-01-11 09:45 | disposition home or self-care (01) ==
LOC: DI 09:44
PROVIDERS: ATTEND Physician Assistant
DX: C50.411 Malignant neoplasm of upper-outer quadrant of right female breast (principal); Z17.0 Estrogen receptor positive status [ER+]
CPT/HCPCS: 19083; 19084

== ENCOUNTER 2023-03-02 13:05 | Outpatient (CLI) | payer OTHER | END 2023-03-02 13:06 | disposition home or self-care (01) | LOC: RT 13:05 | PROVIDERS: ATTEND Surgery | DX: Z01.810 Encounter for preprocedural cardiovascular examination (principal) | CPT/HCPCS: 93005 ==

== ENCOUNTER 2023-03-24 12:56 | Emergency (ER) | payer OTHER ==
[2023-03-24 13:25] LABS: BASOPHILS % (AUTO) 0.5 %; EOSINOPHILS # (AUTO) 0.1 10^3/uL (0.0-0.7); EOSINOPHILS % (AUTO) 1.4 %; HCT - HEMATOCRIT 41.8 % (37.0-47.0); HGB - HEMOGLOBIN 14.2 g/dL (12.0-16.0); LYMPHOCYTES % (AUTO) 11.8 %; MEAN CORPUSCULAR HEMOGLOBIN 29.4 pg (27.0-31.0); MEAN CORPUSCULAR VOLUME 86.5 fL (81.0-99.0); MEAN PLATELET VOLUME 9.6 fL (7.9-10.8); MONOCYTES # (AUTO) 0.5 10^3/uL (0.0-1.0); MONOCYTES % (AUTO) 6.5 %; NEUTROPHILS # (AUTO) 6.5 10^3/uL (1.5-6.6); NEUTROPHILS % (AUTO) 79.6 %; PLT - PLATELET COUNT 202 10^3/uL (130-450); RED BLOOD COUNT 4.83 10^6/uL (4.20-5.40); RED CELL DISTRIBUTION WIDTH 12.3 % (12.0-15.0); WHITE BLOOD COUNT 8.1 x10^3/uL (4.8-10.8)
[2023-03-24] MEDS ORDERED: ONDANSETRON 4 MG/2 ML VIAL IVP STA (13:27)
[2023-03-24] MEDS ORDERED: SODIUM CHLORIDE 0.9% 1,000 ML IV STA ×2 (13:27→21:40)
--- NOTE | 2023-03-24 13:33 | ED Physician Documentation ---
History of Present Illness - Stated complaint Stated Complaint: CP,STOMACH PX - Chief complaint Chief Complaint: Cardiac - Additonal information Additional information: 62-year-old female presents to the emergency department for evaluation of cute onset right upper quadrant and mid abdominal pain. She states it feels like previous episodes where she has had pain in her liver. Pt stated that she ate a cheeseburger prior to arrival to see if it made her pain better, but it did not worsen the pain The patient is currently known to have right-sided breast cancer and is scheduled to undergo resection of that on March [address] Dey. Patient is a poor historian and is not able to describe to me the nature of her previous abdominal surgeries. However in review of [facility] chart for this patient Dr. Joni Dorman her surgeon states in 2020 that pt has a "longstanding history of repeated bouts of right-sided cholangitis with stricturing of the right bile duct. Her history is complicated by her having undergone an open cholecystectomy in 1982 with repeated ERCPs and stent placements in 1982 and 1990. She is s/p exploratory laparotomy, right hepatectomy, yasmeen-en-y hepaticojejunostomy, and primary repair of right diaphragmatic iatrogenic defect on 12/30/2020, performed by myself and Dr. Lehman. Surgical pathology revealed 5.5 x 5 cm areas of fibrosis, bile ducts dilatation, biliary sludge and small intrahepatic gallstones, associated acute and chronic inflammation, and capsular fibrous adhesions. 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 Dorman end his chart note in 2020 by stating that he felt the patient's recurrent right-sided abdominal pain was related to her surgery but with the abnormal pathology showing low-grade intraepithelial neoplasia, she was still at risk for malignancy and the recommendation was for continuing monitoring every 3 months. Review of Systems Constitutional: denies: Fever Respiratory: reports: Reviewed and negative GI: reports: Abdominal Pain. 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 - Present Medications Home Medications: Ambulatory Orders Medication Instructions Recorded Confirmed Losartan Potassium 25 mg PO UD 02/16/23 02/16/23 - Allergies Allergies/Adverse Reactions: Allergies Allergy/AdvReac Type Severity Reaction Status Date / Time lisinopril AdvReac Respiratory Verified 03/24/23 13:05 - Social History Does the pt smoke?: No Smoking Status: Never smoker Does the pt drink ETOH?: No Does the pt have substance abuse?: No - Immunizations Immunizations are current?: Yes - POLST Patient has POLST: No PD ED PE EXPANDED - General General: Alert, In Pain - Abdomen Abdomen: Tender to palpation, Surgical scars (Large Y-shaped scar across the right abdomen extending to the left side with vertical incision well-healed. Upper abdomen and right upper quadrant moderately tender to palpation though no guarding or rebound. Nonperitoneal.) - Back Back: Normal exam - Derm Derm: Normal color, Warm and dry - Neuro Neuro: Alert and Oriented X 3, CNII-XII intact Results - Vitals Vitals: Vital Signs - 24 hr 03/24/23 03/24/23 03/24/23 13:00 14:20 17:35 Temperature 36.6 C 36.5 C Heart Rate 69 72 101 H Respiratory 18 14 20 Rate Blood Pressure 177/71 H 165/83 H 176/86 H O2 Saturation 98 93 92 03/24/23 19:08 Temperature Heart Rate 108 H Respiratory 16 Rate Blood Pressure 170/93 H O2 Saturation 93 Oxygen O2 Source Room air - EKG (time done) 1303 EKG releavant findings:: EKG personally interpreted by author of this note. Relevant findings are: Rate: Rate (enter#) (63) Rhythm: NSR [place]: Normal Intervals: Normal ND QRS: Normal Ischemia: Non specific changes Compare to prior EKG: Unchanged from prior EKG Computer interpretation: Agree with computer - Labs Labs: Laboratory Tests 03/24/23 03/24/23 03/24/23 13:21 13:21 13:21 WBC 8.1 RBC 4.83 Hgb 14.2 Hct 41.8 MCV 86.5 MCH 29.4 MCHC 34.0 RDW 12.3 Plt Count 202 MPV 9.6 Neut # (Auto) 6.5 Lymph # (Auto) 1.0 L [place] # (Auto) 0.5 Eos # (Auto) 0.1 Baso # (Auto) 0.0 Absolute Nucleated RBC 0.00 Nucleated RBC % 0.0 Sodium 136 Potassium 3.6 Chloride 100 L Carbon Dioxide 23 Anion Gap 13.0 BUN 10 Creatinine 0.7 Estimated GFR (MDRD) 85 L Glucose 118 H Calcium 8.4 L Total Bilirubin 1.4 H AST 132 H ALT 49 Alkaline Phosphatase 108 Troponin I High Sens 3.7 Total Protein 7.8 Albumin 4.0 Globulin 3.8 Albumin/Globulin Ratio 1.1 Lipase 51 SARS-CoV-2 (PCR) 03/24/23 17:40 WBC RBC Hgb Hct MCV MCH MCHC RDW Plt Count MPV Neut # (Auto) Lymph # (Auto) [place] # (Auto) Eos # (Auto) Baso # (Auto) Absolute Nucleated RBC Nucleated RBC % Sodium Potassium Chloride Carbon Dioxide Anion Gap BUN Creatinine Estimated GFR (MDRD) Glucose Calcium Total Bilirubin AST ALT Alkaline Phosphatase Troponin I High Sens Total Protein Albumin Globulin Albumin/Globulin Ratio Lipase SARS-CoV-2 (PCR) NOT DETECTED - Rads (name of study) CT abd Relevant Findings:: Final report received (1.2 cm filling defect within the proximal common bile duct with associated intrahepatic and extra-articular dilation. Filling defect could represent stone or mass such as cholangiocarcinoma. Additional distal lesion cannot be excluded given diffuse dilation. Prior right partial hepatectomy. Enha) PD Medical Decision Making - ED course Complexity details: reviewed results, re-evaluated patient, considered differential, d/w patient, d/w [facility] sales consultant (Dr. Laly Mazariegos) ED course: 8-year-old female presents emergency department for evaluation of acute right upper quadrant and epigastric abdominal pain that began this morning. Some nausea but no vomiting. No fevers. She attempted to eat a cheeseburger which neither worsened or improved the pain. Patient has quite a complicated abdominal surgical history which includes long standing cholangitishaving undergone an open cholecystectomy in 1982 with repeated ERCPs and stent placements in 1982 and 1990. She is s/p exploratory laparotomy, right hepatectomy, yasmeen-en-y hepaticojejunostomy, and primary repair of right diaphragmatic iatrogenic defect on 12/30/2020. 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 Today in the emergency department she arrives alert though nauseated. She does have abdominal tenderness in the upper quadrant of the abdomen but no guarding or rebound. She is without fever or tachycardia or hypotension. I did obtain CBC and electrolytes. Per my interpretation unremarkable CBC without leukocytosis. Her electrolytes do show a mildly elevated T. bili of 1.4. Most recent in June 2022 was 0.9. Her AST is also markedly elevated at 132 this is again a rise from her most recent labs. Subsequently a CT of the abdomen was completed today and is interpreted by the radiologist shows a large 1.2 cm filling defect within the proximal common bile duct. This defect could represent stone or mass such as cholangiocarcinoma. Given the complicated abdominal surgical history I reached out to [facility] general surgeon Dr. Laly Mazariegos. I was able to discuss the labs as well as the CT imaging today. I have spoken with Dr. Laly Mazariegos general surgeon at [facility]. She does not feel that the patient has an acute surgical issue at this point but she does feel the patient needs transfer for evaluation with GI for possible ERCP. She is concerned that with the new changes in bilirubin and AST this could represent possibility of early ascending cholangitis. 1645: I have spoken with Dr. Bowie gastroenterology at [facility]. He agrees the patient should be transferred for an ERCP. He would like the hospitalist service to admit. Because the patient does not have fever or leukocytosis he would hold off on antibiotics at this time however should her clinical condition change, fever develop or she develops leukocytosis we would initiate appropriate antibiotics likely Cipro/Flagyl. Patient is okay to have a clear liquid diet. I have spoken with the patient and her daughter at the bedside notified them that she will require transfer though there bed capacity at [facility] is full and it will likely be 24 to 48 hours before beds available. 1732: I have spoken with Dr. Reyes Hospitalist at [facility]. He has excepted the patient pending bed availability. In the interim the patient's been moved to a hospital bed in a private room in the ER. She will continue to be monitored for any vital sign changes including fever. We will repeat her labs to evaluate for leukocytosis or worsening LFTs that may warrant antibiotic prophylaxis. Pt will be signed out to Dr. Mackay to f/u on any acute overnight events. Departure - Departure Disposition: 02 Transfer Acute Care Hosp Clinical Impression: Common bile duct dilatation, Abnormal LFTs Breast cancer, right Qualifiers: Breast location: unspecified site of breast Estrogen receptor status: unspecified Patient sex: female Qualified Code(s): C50.911 - Malignant neoplasm of unspecified site of right female breast
[2023-03-24 13:40] LABS: ALBUMIN/GLOBULIN RATIO 1.1 (1.0-2.2); BILIRUBIN,TOTAL 1.4 mg/dL (0.2-1.0); CALCIUM 8.4 mg/dL (8.5-10.3); CREATININE 0.7 mg/dL (0.4-1.0); POTASSIUM 3.6 mmol/L (3.5-5.0); TOTAL PROTEIN 7.8 g/dL (6.7-8.2)
[2023-03-24] MEDS ORDERED: HYDROmorphone 1 MG/ML CARPUJECT IVP STA ×3 (13:51→21:53)
--- NOTE | 2023-03-24 14:38 | CT Report ---
PROCEDURE: ABDOMEN/PELVIS W INDICATIONS: RUQ abd pain; hx of liver resections; breast CA CONTRAST: 100ml omni 350 TECHNIQUE: After the administration of intravenous contrast, 5 mm thick sections acquired from the diaphragms to the symphysis. 5 mm thick coronal and sagittal reformats were acquired. For radiation dose reducti on, the following was used: automated exposure control, adjustment of mA and/or kV according to yun ent size. COMPARISON: CT 04/06/2021 FINDINGS: Image quality: Excellent. Lung bases and heart: Unremarkable. Liver: Partial right hepatectomy. No solid mass. Low-attenuation, favoring steatosis. Gallbladder and biliary tree: Gallbladder not identified. There is intrahepatic and extra hepatic stacey iary dilation. There is a filling defect within the common bile duct, measuring 1.2 cm (series 3, nik ge [id number]). Common bile duct measures 2.7 cm. Spleen: No splenomegaly. Pancreas: No pancreatic ductal dilation. Adrenals: No adrenal nodule. Kidneys and ureters: No hydronephrosis. No renal cystic lesion which requires follow up. No solid mas s. Bowel and peritoneum: No bowel distension. No pathologic free fluid. Lymph nodes: No central or retroperitoneal adenopathy. Vessels: No infrarenal aortic aneurysm. PELVIS Reproductive organs: Unremarkable. Bladder: No abnormal wall thickening, accounting for underdistension. Pelvic lymph nodes: No pelvic adenopathy by size criteria. Bones: No aggressive osseous abnormality. Other: Enhancing right breast mass. IMPRESSION: 1.2 cm filling defect within the proximal common bile duct, with associated intrahepatic and extra ar ticular dilation. This filling defect could represent stone or mass such as cholangiocarcinoma. Addit ional distal lesion cannot be excluded given diffuse dilation. Prior right partial hepatectomy, without evidence of local recurrence. Enhancing right breast mass. Reviewed by: Jose Yan on 03/24/2023 2:37 PM PDT Approved by: Jose Yan on 03/24/2023 2:37 PM PDT Station ID: [id number]
[2023-03-24] MEDS ORDERED: ACETAMINOPHEN 500 MG TABLET PO PRN (16:56)
[2023-03-24] MEDS ORDERED: ONDANSETRON 4 MG/2 ML VIAL IVP PRN (16:56)
[2023-03-24] MEDS ORDERED: PANTOPRAZOLE 40 MG TABLET PO SCH (17:00)
[2023-03-24 21:54] LABS: BASOPHILS % (AUTO) 0.3 %; HCT - HEMATOCRIT 42.1 % (37.0-47.0); HGB - HEMOGLOBIN 14.3 g/dL (12.0-16.0); LYMPHOCYTES # (AUTO) 0.3 10^3/uL (1.5-3.5); LYMPHOCYTES % (AUTO) 2.7 %; MEAN CORPUSCULAR HEMOGLOBIN 29.9 pg (27.0-31.0); MEAN CORPUSCULAR VOLUME 88.1 fL (81.0-99.0); MEAN PLATELET VOLUME 9.5 fL (7.9-10.8); MONOCYTES # (AUTO) 0.5 10^3/uL (0.0-1.0); NEUTROPHILS # (AUTO) 10.8 10^3/uL (1.5-6.6); NEUTROPHILS % (AUTO) 92.7 %; PLT - PLATELET COUNT 143 10^3/uL (130-450); RED BLOOD COUNT 4.78 10^6/uL (4.20-5.40); RED CELL DISTRIBUTION WIDTH 12.5 % (12.0-15.0); WHITE BLOOD COUNT 11.7 x10^3/uL (4.8-10.8)
[2023-03-24] MEDS ORDERED: PIPERACILLIN/TAZOBACTAM 3.375 GM in SODIUM CHLORIDE 0.9% MINIBAG 100 ML IV STA (22:00)
[2023-03-24 22:13] LABS: ALBUMIN 3.8 g/dL (3.2-5.5); BILIRUBIN,TOTAL 3.6 mg/dL (0.2-1.0); CALCIUM 8.2 mg/dL (8.5-10.3); CREATININE 0.8 mg/dL (0.4-1.0); TOTAL PROTEIN 7.7 g/dL (6.7-8.2)
--- NOTE | 2023-03-25 03:09 | ED Physician Documentation ---
ED Addendum - Addendum Addendum: 03/25/23 03:08 No further events during my shift. Patient is accepted to [facility]. COBRA forms completed. Patient transferred This document was made in part using voice recognition software. While efforts are made to proofread this document, sound alike and grammatical errors may occur.
[2023-03-25 04:15] VITALS: BP 115/73
== END 2023-03-25 03:27 | disposition short-term general hospital (02) ==
LOC: ED 12:56
DX: K83.8 Other specified diseases of biliary tract (principal); R79.89 Other specified abnormal findings of blood chemistry; C50.911 Malignant neoplasm of unspecified site of right female breast; I10 Essential (primary) hypertension; Z20.822 Contact with and (suspected) exposure to COVID-19
CPT/HCPCS: 36415; 74177; 80053; 83690; 84484; 85025; 87635; 93005; 96374; 96375; 96376; 99285; A9270; J1170; Q9967

== ENCOUNTER 2023-06-08 08:40 | Day surgery (SDC) | payer OTHER ==
[~2023-06-08 08:40] MED LIST changes: +ACETAMINOPHEN 500 MG TABLET PO ONE; +GABAPENTIN 400 MG CAPSULE ONE; -LIDOCAINE 1%-EPI 1:100000 20 ML MDV ONE; -LIDOCAINE-MPF 1% 5 ML VIAL ONE; +ceFAZolin 2 GM VIAL ONE
[2023-06-08] MEDS ORDERED: LACTATED RINGERS 1,000 ML IV ONE (10:45)
--- NOTE | 2023-06-08 11:13 | ANESTHESIA ---
Pre-Anesthesia VS, & Labs - Diagnosis right breast invasive ductal carcinoma - Procedure right breast lumpectomy Vital Signs: Temp Pulse Resp BP Pulse Ox O2 Flow Rate 36.6 C 62 17 165/96 H 98 06/08/23 09:02 06/08/23 09:02 06/08/23 09:02 06/08/23 09:02 06/08/23 09:02 Height: 5 ft 1 in Weight (kg): 80.3 kg Body Mass Index: 33.4 BMI Classification: Obese - NPO >8 hours - Is Patient ?: No Home Medications and Allergies Losartan Potassium 25 mg PO UD 02/16/23 Anastrozole PO DAILY 03/28/23 Allergies/Adverse Reactions: Allergies Allergy/AdvReac Type Severity Reaction Status Date / Time lisinopril AdvReac Respiratory Verified 03/24/23 13:05 Anes History & Medical History - Anesthetic History Anesthesia Complications: reports: Slow wake-up - Medical History Cardiovascular: reports: Hypertension, High cholesterol Pulmonary: reports: None, Sleep apnea (diagnosed in [place]. Patient sleepy, snoring and difficult to arouse with witnessed periods of apnea.) Gastrointestinal: reports: Cholelithiasis Urinary: reports: None Neuro: reports: None Musculoskeletal: reports: Osteoarthritis, Chronic back pain Endocrine/Autoimmune: reports: None Skin: reports: None Smoking Status: Never smoker Psychosocial: reports: No issues indicated History of Cancer?: Yes (breast cancer) - Surgical History General: reports: Cholecystectomy, Appendectomy, Liver surgery, Other Gynecologic: reports: section, Other Exam General: Oriented x3, Cooperative, Other (sleepy) Dental: Poor dentition Mouth Openin Fingerbreadth Neck Mobility: Normal Mallampati classification: III Thyromental Distance: 4-6 cm Mental/Cognitive Status: Alert/Oriented X3, Lethargic Plan Anesthesia Type: General Consent for Procedure(s) Verified and Reviewed: Yes Code Status: Attempt Resuscitation ASA classification: 3-Severe systemic disease Is this case an emergency?: No
[2023-06-08] MEDS ORDERED: fentaNYL 100 MCG/2 ML VIAL IVP PRN (11:14)
[2023-06-08] MEDS ORDERED: ATROPINE ABBOJECT 1 MG/10 ML SYRINGE IVP PRN (11:14)
[2023-06-08] MEDS ORDERED: HYDROmorphone 0.5 MG/0.5 ML SYRINGE IVP PRN ×2 (11:14→15:21)
[2023-06-08] MEDS ORDERED: NALOXONE 0.4 MG/ML VIAL IVP PRN (11:14)
[2023-06-08] MEDS ORDERED: ONDANSETRON 4 MG/2 ML VIAL IVP PRN ×2 (11:14→15:21)
[2023-06-08] MEDS ORDERED: MORPHINE 2 MG/ML CARPUJECT IVP PRN (11:14)
[2023-06-08] MEDS ORDERED: LIDOCAINE 1%-EPI 1:100000 20 ML MDV ONE (12:00)
[2023-06-08] MEDS ORDERED: LACTATED RINGERS 1,000 ML IV SCH (12:00)
[2023-06-08] MEDS ORDERED: BUPIVACAINE 0.5% PF 10 ML VIAL ONE (12:00)
[2023-06-08] MEDS ORDERED: MIDAZOLAM 2 MG/2 ML VIAL ONE (12:01)
[2023-06-08] MEDS ORDERED: PROPOFOL 200 MG/20 ML VIAL IVP ONE (12:01)
[2023-06-08] MEDS ORDERED: fentaNYL 100 MCG/2 ML VIAL ONE ×2 (12:01→14:27)
[2023-06-08] MEDS ORDERED: BUPIVACAINE 0.5% PF 30 ML VIAL SUBQ ONE (13:00)
[2023-06-08] MEDS ORDERED: LIDOCAINE MPF 2%-EPI 1:200000 20 ML VIAL SUBQ ONE (13:00)
[2023-06-08] MEDS ORDERED: DEXAMETHASONE 4 MG/ML VIAL ONE (13:02)
[2023-06-08] MEDS ORDERED: ONDANSETRON 4 MG/2 ML VIAL ONE (15:04)
[2023-06-08] MEDS ORDERED: LACTATED RINGERS 700 ML IV ONE (15:21)
[2023-06-08] MEDS ORDERED: oxyCODONE 5 MG TABLET PO PRN (15:21)
[2023-06-08] MEDS ORDERED: ACETAMINOPHEN 500 MG TABLET PO PRN (15:21)
--- NOTE | 2023-06-08 15:28 | OPERATIVE REPORT ---
Operative Report - General Procedure Date: 06/08/23 Planned Procedure: Right lumpectomy and sentinel lymph node biopsy Pre-Op Diagnosis: Invasive ductal carcinoma Procedure Performed: Right lumpectomy (wire bracketing) and sentinel lymph node biopsy Post Op Diagnosis: Invasive ductal carcinoma - Procedure Note Primary Surgeon: Dr Enma Nava Anesthesia Provider: Julianna George CRNA Anesthesia Technique: General LMA, Local Pathology: 1. Right lumpectomy, oriented short superior, long lateral, double anterior 2. Reexcision superior margin, short new superior margin, long lateral, double anterior 3. [place] lymph node #1, [id number] 4. [place] lymph node #2, 8512 5. [place] lymph node #3, [id number] Estimated Blood Loss (mL): 75 Indications: The patient has biopsy-proven invasive ductal carcinoma. She was seen and evaluated in the clinic where we discussed the risks, benefits, and alternatives of lumpectomy with sentinel lymph node biopsy including bleeding, infection, damage to surrounding structures, numbness in the area, positive margins requiring reexcision, and the need for further surgeries or procedures. The patient voiced understanding, her questions were answered, and she wished to proceed. A consent was signed by the patient prior to surgery. Of note the patient did undergo genetic testing which was negative for any significant genetic mutations prior to surgery. She also had a prolonged course between the time of diagnosis and surgery due to her being hospitalized for cholangitis and multiple scheduling difficulties. Findings: 1.Right lumpectomy specimen includes both wires and both clips on specimen mammogram 2. Superior margin reexcised Complications: None - Other Other Information/Narrative: The patient was taken to the operating room and placed in the supine position. Preop antibiotics were given. ERAS medications were given. The patient was prepped and draped in the usual sterile fashion. A preop surgical timeout was performed. Attention was turned to the patient's right breast. An incision was made which incorporated the lateral wire, following the patient's skin folds, at the 9 o'clock position, N + 5. Skin flaps were raised superiorly and inferiorly to the incision. The dissection was carried around the palpable mass to incorporate both wires using serrated scissors. The mass was oriented on the back table, short superior, long lateral, double anterior and sent to mammography. The specimen demonstrated both wires and both clips. Reexamination of the specimen demonstrated a close superior margin and the tissue in this area appeared thick. Therefore, I elected to reexcise the superior margin. This was oriented on the back table short new superior margin, long lateral, double deep. The edges of the lumpectomy cavity were inspected and there were no palpable abnormalities. Hemostasis was confirmed. The lumpectomy cavity was irrigated with warm normal saline. Clips were placed in the superior, inferior, medial, lateral, anterior, and posterior margins of the lumpectomy cavity. Attention was then turned to the right axilla. An incision was made just inferior to the hairline at the area of greatest uptake using the neoprobe device. The incision was made using a 15 blade scalpel and carried down through the skin and subcutaneous tissues to the level of the axillary fascia. The fascia was incised. The sentinel lymph nodes were identified using the neoprobe. Clips were used proximally and distally to the nodes and the nodes were removed the first node had a maximal reading of 9100 on the back table and was noted to be markedly enlarged. The second sentinel lymph node measured 8512 on the back table. A third lymph node measured 86965. On further inspection, there were no additional lymph nodes that had at least 10% uptake, 1410, and no additional abnormal palpable nodes. Hemostasis was confirmed in the axilla. The lumpectomy cavity was then reinspected and noted to be hemostatic. The deep dermal tissues of both incisions were reapproximated with 3-0 Vicryl. Both incisions were then closed with 4-0 Monocryl in a subcuticular fashion. Skin glue was placed over both incisions. The patient tolerated the procedure well. There were no complications. She was extubated in the operating room and transferred to the recovery room in stable condition. All needle and soft counts were correct at the end of the case. Synoptic Breast SNB - [place] Node Biopsy Operation performed with curative intent: Yes Tracer(s) used to identify sentinel nodes in the upfront surgery (non- neoadjuvant) setting (select all that apply): Radioactive tracer Tracer(s) used to identify sentinel nodes in the neoadjuvant setting (select all that apply): N/A All nodes (colored or non-colored) present at the end of a dye-filled lymphatic channel were removed: N/A All significantly radioactive nodes were removed: Yes All palpably suspicious nodes were removed: N/A Biopsy-proven positive nodes marked with clips prior to chemotherapy were identified and removed: N/A
[2023-06-08 16:00] VITALS: O2SAT 97
--- NOTE | 2023-06-08 16:10 | ANESTHESIA POST OP EVALUATION ---
Anesthesia Post Eval - Post Anesthesia Eval Vitals: Last Vital Signs Temp 36.3 C L 06/08/23 16:05 Pulse 57 L 06/08/23 16:05 Resp 12 06/08/23 16:05 BP 111/99 H 06/08/23 16:05 Pulse Ox 97 06/08/23 16:05 O2 Flow Rate CV Function Including HR & BP: Stable Pain Control: Satisfactory Nausea & Vomiting: Negative Mental Status: Baseline Respiratory Status: Airway Patent Hydration Status: Satisfactory Anesthesia Complications: None
[2023-06-08 16:59] VITALS: BP 156/90
--- NOTE | 2023-06-09 11:03 | Mammography Report ---
SPECIMEN RIGHT BREAST: 06/08/2023 CLINICAL: Right breast specimen. Correlation is made to exams dated: 06/08/2023 mammogram, 06/08/2023 localization - [facility], 02/10/2023 breast MRI - [facility], 01/11/2023 mammogram, 01/06/2023 ultrasound, and 01/06 mammogram - [facility]. A surgical specimen was imaged for the mass located in the right breast superior lateral quadrant mi ddle depth. This was described on the previous mammography, ultrasound, and MRI reports. IMPRESSION: SPECIMEN The imaged specimen includes the mass, biopsy clips, and the distal portion of the localization wires . This exam was interpreted at Station ID: [id number]. Alphonso hanna/alannah:06/08/2023 14:35:16 BI-RADS CATEGORY: () - Unspecified - other recall n/a LATERALITY: (B)
--- NOTE | 2023-06-09 11:03 | Mammography Report ---
UNILATERAL RIGHT DIGITAL DIAGNOSTIC MAMMOGRAM POST-PROCEDURE IMAGING FOR MARKER PLACEMENT: 06/08/2023 CLINICAL: Post right wire localization. Comparison is made to exams dated: 02/10/2023 breast MRI - [facility], 01/11/2023 mammogram, 023 mammogram, 10/05/2018 mammogram, 06/08/2023 localization, and 01/06/2023 ultrasound - [facility]. The right breast is heterogeneously dense, which may obscure small masses (category c / 51-75% glandu lar tissue). Two localization wires are seen in the right lateral breast. The more lateral wire is seen with the r einforced portion of the wire located approximately 0.5 cm posterior to the 9 o'clock biopsy clip. Th e more medial wire tip is not seen on CC view, but is likely slightly medial to the 10 o'clock biopsy clip. On lateral view, the medial wire is inferior and slightly anterior to the 10 o'clock biopsy cl ip. IMPRESSION: POST PROCEDURE MAMMOGRAM FOR MARKER PLACEMENT Two localization wires are seen in the right breast with positioning as described above. Wire positio cintia was discussed with the patient's surgeon in depth prior to the surgery. This exam was interpreted at Station ID: [id number]. NOTE: For mammograms, a report in lay terms will be sent to the patient. Approximately 15% of breast malignancies will not be visualized mammographically. In the management of a palpable breast mass, a negative mammogram must not discourage biopsy of a clinically suspicious lesion. Electronically Signed By: Alphonso hanna/alannah:06/08/2023 14:34:06 ACR BI-RADS Category Post-procedure mammogram for marker placement PARENCHYMAL PATTERN: (D) - The breast(s) demonstrate(s) heterogeneously dense fibroglandular pararmondy ma. BI-RADS CATEGORY: () - Unspecified - other recall n/a LATERALITY: (B)
--- NOTE | 2023-06-09 11:03 | Ultrasound Report ---
MULTIPLE ULTRASOUND GUIDED WIRE LOCALIZATION RIGHT BREAST WITH POST DIGITAL MAMMOGRAPHIC AND ULTRASOU ND IMAGIN06/08/2023 CLINICAL: Right breast Wire Localization. Correlation is made to exams dated: 02/10/2023 breast MRI - [facility], 01/11/2023 ultrasound biops y, 01/11/2023 ultrasound biopsy, 01/11/2023 mammogram, 01/06/2023 ultrasound, and 01/06/2023 mammogram - [facility]. A wire localization using ultrasound guidance was performed for the portion of the mass located in th e right breast at 9 o'clock middle depth. This was described on the previous mammography, ultrasound , and MRI reports. The skin was prepped in the usual manner. Local anesthetic was administered to t he access site. The localization was approached from the lateral aspect. A J-hook wire was inserted adjacent to the marker along the lateral margin of the mass through an introducer device under ultra sound guidance. Post placement digital mammographic and ultrasound imaging was obtained. A wire localization using ultrasound guidance was performed for the portion of the mass located in th e right breast at 10 o'clock posterior depth. This was described on the previous mammography, ultras ound, and MRI reports. The skin was prepped in the usual manner. Local anesthetic was administered to the access site. The localization was approached from the lateral aspect. A J-hook wire was inse rted into the targeted area along the inferior deep medial margin of the mass through an introducer d evice under ultrasound guidance. Post placement digital mammographic and ultrasound imaging was obta ined. IMPRESSION: WIRE LOCALIZATION Bracketing wire localization for the mass in the right lateral breast was successful with no apparent post procedure complications. This exam was interpreted at Station ID: [id number]. Alphonso Rivera M.D. ar/:06/08/2023 14:27:57 BI-RADS CATEGORY: () - Unspecified - other recall n/a LATERALITY: (B)
== END 2023-06-08 08:41 | disposition home or self-care (01) ==
LOC: DI 08:40
PROVIDERS: ATTEND Surgery
PROC: 07B50ZZ Excision of Right Axillary Lymphatic, Open Approach (ICD-10-PCS; 2023-06-08)
PROC: 0HBT0ZZ Excision of Right Breast, Open Approach (ICD-10-PCS; principal; 2023-06-08 12:30)
DX: C50.911 Malignant neoplasm of unspecified site of right female breast (principal); C77.3 Secondary and unspecified malignant neoplasm of axilla and upper limb lymph nodes; Z17.1 Estrogen receptor negative status [ER-]; E66.9 Obesity, unspecified; Z68.33 Body mass index [BMI] 33.0-33.9, adult; I10 Essential (primary) hypertension; G47.30 Sleep apnea, unspecified; Z80.3 Family history of malignant neoplasm of breast
CPT/HCPCS: 19285

== ENCOUNTER 2023-07-05 07:14 | Day surgery (SDC) | payer OTHER ==
[~2023-07-05 07:14] MED LIST changes: -ACETAMINOPHEN 500 MG TABLET PO ONE; +BUPIVACAINE 0.5% PF 10 ML VIAL ONE; -GABAPENTIN 400 MG CAPSULE ONE; +LIDOCAINE 1%-EPI 1:100000 20 ML MDV ONE; -ceFAZolin 2 GM VIAL ONE
[2023-07-05] MEDS ORDERED: ACETAMINOPHEN 500 MG TABLET PO ONE (07:24)
[2023-07-05] MEDS ORDERED: ceFAZolin 2 GM VIAL ONE (07:24)
[2023-07-05] MEDS ORDERED: LACTATED RINGERS 1,000 ML IV ONE ×2 (07:35→10:05)
[2023-07-05] MEDS ORDERED: PROPOFOL 200 MG/20 ML VIAL IVP ONE ×2 (07:52→10:00)
[2023-07-05] MEDS ORDERED: MIDAZOLAM 2 MG/2 ML VIAL ONE (07:52)
[2023-07-05] MEDS ORDERED: LIDOCAINE-PF 2% 10 ML AMP SUBQ ONE (07:52)
[2023-07-05] MEDS ORDERED: fentaNYL 100 MCG/2 ML VIAL ONE (07:52)
[2023-07-05] MEDS ORDERED: DEXAMETHASONE 4 MG/ML VIAL ONE (07:53)
[2023-07-05] MEDS ORDERED: ONDANSETRON 4 MG/2 ML VIAL ONE (07:53)
--- NOTE | 2023-07-05 08:04 | ANESTHESIA ---
Pre-Anesthesia VS, & Labs - Diagnosis invasive ductal carcinoma, R breast - Procedure re-excision of margins R breast CA Vital Signs: Temp Pulse Resp BP Pulse Ox O2 Flow Rate 36.3 C L 58 L 15 141/89 H 98 0 07/05/23 07:37 07/05/23 07:37 07/05/23 07:37 07/05/23 07:37 07/05/23 07:37 07/05/23 07:37 Height: 5 ft 1 in Weight (kg): 80.4 kg Body Mass Index: 33.5 BMI Classification: Obese - NPO Other - Is Patient ?: No Home Medications and Allergies Home Medications: Ambulatory Orders Ursodiol [Che] 250 mg PO DAILY 07/04/23 Anastrozole 1 tab PO DAILY 03/28/23 Ursodiol [Che] 250 mg PO DAILY 07/04/23 Allergies/Adverse Reactions: Allergies Allergy/AdvReac Type Severity Reaction Status Date / Time losartan Allergy Unknown Verified 06/08/23 11:16 lisinopril AdvReac Respiratory Verified 03/24/23 13:05 Anes History & Medical History - Anesthetic History Anesthesia Complications: reports: No previous complications Family history of Anesthesia Complications: Denies Family history of Malignant Hyperthermia: Denies - Medical History Cardiovascular: reports: Hypertension, High cholesterol Pulmonary: reports: None, Sleep apnea Gastrointestinal: reports: Cholelithiasis Urinary: reports: None Neuro: reports: None Musculoskeletal: reports: Osteoarthritis, Chronic back pain Endocrine/Autoimmune: reports: None Skin: reports: None Smoking Status: Never smoker - Surgical History General: reports: Cholecystectomy, Appendectomy, Liver surgery, Other Gynecologic: reports: section, Other Exam General: Alert, Oriented x3, Cooperative, No acute distress Dental: WNL Mouth Openin Fingerbreadth Neck Mobility: Normal Mallampati classification: II Thyromental Distance: 4-6 cm Respiratory: Lungs clear Cardiovascular: Regular rate Plan Anesthesia Type: General Consent for Procedure(s) Verified and Reviewed: Yes Code Status: Attempt Resuscitation ASA classification: 3-Severe systemic disease Is this case an emergency?: No
[2023-07-05] MEDS ORDERED: ePHEDrine 50 MG/ML VIAL IVP PRN (08:05)
[2023-07-05] MEDS ORDERED: METOCLOPRAMIDE 10 MG/2 ML VIAL IVP PRN (08:05)
[2023-07-05] MEDS ORDERED: ATROPINE ABBOJECT 1 MG/10 ML SYRINGE IVP PRN (08:05)
[2023-07-05] MEDS ORDERED: fentaNYL 100 MCG/2 ML VIAL IVP PRN (08:05)
[2023-07-05] MEDS ORDERED: HYDROmorphone 0.5 MG/0.5 ML SYRINGE IVP PRN ×2 (08:05→09:55)
[2023-07-05] MEDS ORDERED: MORPHINE 2 MG/ML CARPUJECT IVP PRN (08:05)
[2023-07-05] MEDS ORDERED: NALOXONE 0.4 MG/ML VIAL IVP PRN (08:05)
[2023-07-05] MEDS ORDERED: ONDANSETRON 4 MG/2 ML VIAL IVP PRN ×2 (08:05→09:55)
[2023-07-05] MEDS ORDERED: BUPIVACAINE 0.5% PF 30 ML VIAL SUBQ ONE ×2 (08:50)
[2023-07-05] MEDS ORDERED: LIDOCAINE MPF 2%-EPI 1:200000 20 ML VIAL SUBQ ONE ×2 (08:50)
[2023-07-05] MEDS ORDERED: LACTATED RINGERS 1,000 ML IV SCH (09:00)
[2023-07-05] MEDS ORDERED: IBUPROFEN 400 MG TABLET PO PRN (09:55)
[2023-07-05] MEDS ORDERED: oxyCODONE 5 MG TABLET PO PRN (09:55)
--- NOTE | 2023-07-05 10:00 | OPERATIVE REPORT ---
Operative Report - General Procedure Date: 07/05/23 Planned Procedure: re excision of superior margin, hematoma evacuation Pre-Op Diagnosis: IDC, positive margin Procedure Performed: re excision of superior margin, hematoma evacuation Post Op Diagnosis: IDC, positive margin - Procedure Note Primary Surgeon: Dr. Enma Nava Anesthesia Provider: Bernadette Bhakta CRNA Anesthesia Technique: General ET tube, Local Pathology: 1. superior margin oriented short superior, long lateral, double anterior Estimated Blood Loss (mL): 15 Drain/Tube Type: Nikhil Zheng round drain Indications: The patient has biopsy-proven invasive ductal carcinoma. She underwent a large lumpectomy. Final pathology revealed a positive anterior margin. She also developed a hematoma. She was seen and evaluated in the clinic where we discussed the risks, benefits, and alternatives of reexcising the positive margin and evacuating the hematoma. Risks include bleeding, infection, damage to surrounding structures, a persistently positive margin, and the need for further surgeries or procedures. The patient voiced understanding, her questions were answered, and she wished to proceed. A consent was signed by the patient. Findings: 1. Moderate hematoma evacuated. Hemostasis achieved 2. Anterior margin reexcised 3. TACHO drain placed Complications: None - Other Other Information/Narrative: The patient was taken to the operating room and placed in the supine position. Preop antibiotics were given. ERAS medications were given. The patient was prepped and draped in the usual sterile fashion. A preop surgical timeout was performed. Attention was turned to the patient's right breast. The previous incision was opened with a 15 blade scalpel. A moderate-sized hematoma was evacuated. Copious irrigation with warm normal saline was used to completely evacuate the hematoma. No active bleeding was noted. Hemostasis was confirmed. Next, the anterior margin was reexcised using Eh-Cut scissors. This was oriented on the back table, short superior, long lateral, double anterior. Hemostasis was confirmed along the new anterior margin. Due to the size of the lumpectomy cavity and the history of hematoma, a 7 [place] TACHO drain was placed in the lumpectomy cavity. This was sewn into place using a 3-0 nylon suture. Local was injected into the edges of the lumpectomy cavity. Hemostasis was again confirmed. Clips were placed along the borders of the lumpectomy in the superior, inferior, medial, lateral, anterior, and posterior margins of the cavity. Next, the deep dermal tissues were closed with 3-0 Vicryl in an interrupted fashion. Finally, the skin was closed with 4-0 Monocryl in a running subcuticular fashion. The patient tolerated the procedure well. There were no complications.The patient was extubated in the operating room and transferred to the recovery area in stable condition. All counts of needles and soft counts were correct at the end of the case.
[2023-07-05 11:31] VITALS: BP 122/71; O2SAT 99
--- NOTE | 2023-07-05 14:16 | ANESTHESIA POST OP EVALUATION ---
Anesthesia Post Eval - Post Anesthesia Eval Vitals: Last Vital Signs Temp 36.2 C L 07/05/23 11:20 Pulse 59 L 07/05/23 11:20 Resp 16 07/05/23 11:20 BP 122/71 07/05/23 11:20 Pulse Ox 99 07/05/23 11:20 O2 Flow Rate 0 07/05/23 07:37 CV Function Including HR & BP: Stable Pain Control: Satisfactory Nausea & Vomiting: Negative Mental Status: Baseline Respiratory Status: Airway Patent Hydration Status: Satisfactory Anesthesia Complications: None
== END 2023-07-05 07:15 | disposition home or self-care (01) ==
LOC: SDS 07:14
PROVIDERS: ATTEND Surgery
PROC: 0HBT0ZZ Excision of Right Breast, Open Approach (ICD-10-PCS; principal; 2023-07-05 08:30)
DX: D05.11 Intraductal carcinoma in situ of right breast (principal); L76.32 Postprocedural hematoma of skin and subcutaneous tissue following other procedure; I10 Essential (primary) hypertension; E66.9 Obesity, unspecified; Z68.33 Body mass index [BMI] 33.0-33.9, adult
CPT/HCPCS: 19301; A9270; J1170; J7120

== ENCOUNTER 2023-07-31 08:36 | Day surgery (SDC) | payer OTHER ==
[2023-07-31] MEDS ORDERED: BUPIVACAINE 0.25% PF 30 ML VIAL ONE (09:00)
[2023-07-31] MEDS ORDERED: LIDOCAINE 1%-EPI 1:100000 20 ML MDV ONE (09:00)
[2023-07-31] MEDS ORDERED: LACTATED RINGERS 1,000 ML IV ONE (09:03)
--- NOTE | 2023-07-31 09:22 | ANESTHESIA ---
Pre-Anesthesia VS, & Labs - Diagnosis Invasive ductal carcinoma - Procedure placement of portacath Height: 5 ft 1 in Weight (kg): 80 kg Body Mass Index: 33.3 BMI Classification: Obese - NPO >8 hours - Is Patient ?: No Home Medications and Allergies Anastrozole 1 tab PO DAILY 03/28/23 Ursodiol [Che] 250 mg PO DAILY 07/04/23 OLANZapine [Zyprexa] 5 mg PO HS 07/18/23 Prochlorperazine Maleate [Compazine] 10 mg PO Q6HR PRN 07/18/23 dexAMETHasone [Decadron] 4 mg PO 07/18/23 ondansetron HCL [Ondansetron HCl] 8 mg PO Q8HR PRN 07/18/23 Allergies/Adverse Reactions: Allergies Allergy/AdvReac Type Severity Reaction Status Date / Time losartan Allergy Unknown Verified 07/31/23 09:02 lisinopril AdvReac Respiratory Verified 07/31/23 09:02 Anes History & Medical History - Anesthetic History Anesthesia Complications: reports: No previous complications - Medical History Cardiovascular: reports: Hypertension, High cholesterol Pulmonary: reports: Sleep apnea Gastrointestinal: reports: Cholelithiasis, Other (biliary stents) Urinary: reports: None Neuro: reports: None Musculoskeletal: reports: Osteoarthritis, Chronic back pain Endocrine/Autoimmune: reports: None Skin: reports: None Smoking Status: Never smoker Psychosocial: reports: No issues indicated History of Cancer?: Yes - Surgical History General: reports: Cholecystectomy, Appendectomy, Liver surgery, Other Gynecologic: reports: section, Other Exam General: Alert, Oriented x3, Cooperative, No acute distress Dental: Poor dentition (multiple missing) Mouth Openin Fingerbreadth Neck Mobility: Normal Mallampati classification: III Thyromental Distance: 4-6 cm Mental/Cognitive Status: Alert/Oriented X3, Normal for patient Plan Anesthesia Type: General, Total IV Consent for Procedure(s) Verified and Reviewed: Yes Code Status: Attempt Resuscitation ASA classification: 3-Severe systemic disease Is this case an emergency?: No
[2023-07-31] MEDS ORDERED: BUPIVACAINE 0.25% PF 30 ML VIAL SUBQ ONE ×2 (10:01)
[2023-07-31] MEDS ORDERED: LIDOCAINE 1%-EPI 1:100000 20 ML MDV SUBQ ONE ×2 (10:01)
[2023-07-31] MEDS ORDERED: SODIUM CHLORIDE 0.9% 100 ML BAG IV ONE (10:18)
[2023-07-31] MEDS ORDERED: oxyCODONE 5 MG TABLET PO PRN (10:28)
[2023-07-31] MEDS ORDERED: LACTATED RINGERS 300 ML IV ONE (10:32)
--- NOTE | 2023-07-31 10:32 | OPERATIVE REPORT ---
Operative Report - General Procedure Date: 07/31/23 Planned Procedure: Portacatheter placement Pre-Op Diagnosis: Invasive ductal carcinoma, right side Procedure Performed: Portacatheter placement, right internal jugular vein, with ultrasound and fluoroscopy guidance Post Op Diagnosis: Invasive ductal carcinoma, right side - Procedure Note Primary Surgeon: Enam Nava MD Anesthesia Provider: Zahra Sanderson CRNA Anesthesia Technique: Local, MAC Estimated Blood Loss (mL): 5 Indications: The patient has right-sided breast cancer with luz involvement. Her oncology team has requested portacatheter placement for chemotherapy treatment. We discussed the risks, benefits, and alternatives of portacatheter placement including bleeding, infection, damage to surrounding structures including pneumothorax, infection of the port or dysfunction of the port requiring removal or replacement, and the need for further surgeries or procedures. The patient voiced understanding, her questions were answered, and she wished to proceed. A consent was signed by the patient prior to surgery. Findings: 1.Patent right internal jugular vein 2. Portacatheter in good position, flushes and draws easily 3. Loaded with 2 mL 100 units/mL heparin Complications: None - Other Other Information/Narrative: The patient was taken to the operative suite and placed in the supine position preoperative ERAS medications given. Preoperative antibiotics given. MAC anesthesia was induced to the appropriate level of consciousness. An ultrasound was used to verify the right internal jugular vein was widely patent. The patient was then prepped and draped in the usual, sterile fashion. Next, a sterile ultrasound probe was used to visualize the right internal jugular vein local anesthetic was injected into the skin and subcutaneous tissues overlying this vessel and an 11 blade scalpel was used to make a small skin teodora. Next, under direct ultrasound guidance, a Cook needle was used to gain access to the right internal jugular vein. This was successful on the first attempt. There was excellent return of dark red nonpulsatile blood. A guidewire was passed through the Cook needle without resistance. Fluoroscopy was used to verify the position of the wire. Ultrasound was also used to verify the position of the wire. Next, attention was turned to the chest. The location was chosen on the right anterior chest wall for the portacatheter to sit. The skin and subcutaneous tissues in this area were anesthetized with local as was the path which the catheter would follow up to the neck incision. A 15 blade scalpel was used to make a 2 cm incision in the which was carried down through the skin and subcutaneous tissues to the level of the clavipectoral fascia. A pocket was made with blunt dissection to accommodate the port. Port easily fit within the pocket. 2 interrupted sutures of 3-0 PDS were placed through the port to tack it to the clavipectoral fascia. These were tied into place and then the port was tunneled from the inferior chest wall incision to the superior neck incision. Next, the catheter was cut to the appropriate length under direct fluoroscopic guidance. A dilator and sheath were passed over the guidewire under direct fluoroscopic guidance and the dilator and guidewire were removed leaving only the breakaway sheath in place. The catheter was passed through the sheath and the sheath was broken away. The catheter was the only thing that remained within the vessel. Fluoroscopy confirmed that the catheter tip was in good position and that there were no kinks at the neck. The catheter flushed and chi easily. Next, 3-0 Vicryl was used in an interrupted fashion to reapproximate the deep dermal tissues at the chest incision. Then, 4-0 Monocryl was used in an int errupted subcuticular fashion to reapproximate the skin at the neck incision and in a running subcuticular fashion to reapproximate the skin at the chest incision. A sterile dressing of skin glue was placed. The port was flushed with 2 mL 100 units/mL heparinized saline. The patient tolerated the procedure well and there were no complications. A postoperative chest x-ray is pending at this time.
--- NOTE | 2023-07-31 11:13 | XRAY Report ---
PROCEDURE: Chest for Line Placement INDICATIONS: line placement; PORT PLACEMENT TECHNIQUE: One view of the chest was acquired. COMPARISON: None. FINDINGS: Surgical changes and devices: Right chest wall port tip projects over the mid SVC. Right axillary an d breast surgical clips. Lungs and pleura: No pleural effusions or pneumothorax. Lungs are clear. Mediastinum: Mediastinal contours appear normal. Heart size is normal. Bones and chest wall: No suspicious bony lesions. Overlying soft tissues appear unremarkable. IMPRESSION: Right chest wall port tip projects over the mid SVC. No pneumothorax. Reviewed by: Jose Yan on 07/31/2023 11:12 AM PDT Approved by: Jose Yan on 07/31/2023 11:12 AM PDT Station ID: [id number]
--- NOTE | 2023-07-31 11:27 | ANESTHESIA POST OP EVALUATION ---
Anesthesia Post Eval - Post Anesthesia Eval Vitals: Last Vital Signs Temp 36.1 C L 07/31/23 11:22 Pulse 59 L 07/31/23 11:22 Resp 16 07/31/23 11:22 BP 149/83 H 07/31/23 11:22 Pulse Ox 98 07/31/23 11:22 O2 Flow Rate CV Function Including HR & BP: Stable Pain Control: Satisfactory Nausea & Vomiting: Negative Mental Status: Baseline Respiratory Status: Airway Patent Hydration Status: Satisfactory Anesthesia Complications: None
[2023-07-31 11:31] VITALS: BP 149/83; O2SAT 98
--- NOTE | 2023-07-31 13:42 | XRAY Report ---
PROCEDURE: OR Port-A-Cath INDICATIONS: Port a cath placement FLUORO TIME: 0.3 MIN TECHNIQUE: Real time fluoroscopy was performed of the thorax. FINDINGS: 2 intraoperative fluoroscopic images. Tip of the chest port catheter projects over the mid SVC. IMPRESSION: Intraprocedural fluoroscopy was provided for guidance and anatomic localization. Please see the proc edure report for further details. Reviewed by: Alphonso Guillory MD on 07/31/2023 1:40 PM PDT Approved by: Alphonso Guillory MD on 07/31/2023 1:40 PM PDT Station ID: [id number]
== END 2023-07-31 08:37 | disposition home or self-care (01) ==
LOC: SDS 08:36
PROVIDERS: ATTEND Surgery
DX: C50.911 Malignant neoplasm of unspecified site of right female breast (principal); E66.9 Obesity, unspecified; Z68.33 Body mass index [BMI] 33.0-33.9, adult; G47.30 Sleep apnea, unspecified; I10 Essential (primary) hypertension
CPT/HCPCS: 36561; C1788; J7120

== ENCOUNTER 2023-09-26 19:07 | Emergency (ER) | payer OTHER ==
[2023-09-26] MEDS ORDERED: MAG HYDROX/AL HYDROX/SIMETH 30 ML UDC PO STA (20:50)
[2023-09-26] MEDS ORDERED: oxyCODONE 5 MG TABLET PO STA (20:50)
[2023-09-26] MEDS ORDERED: LIDOCAINE VISCOUS 2% 15 ML UDC MM STA (20:50)
--- NOTE | 2023-09-26 20:53 | ED Physician Documentation ---
History of Present Illness - Stated complaint Stated Complaint: SORE THROAT - Chief complaint Chief Complaint: Heent - History obtained from History obtained from: Patient, Family - History of Present Illness Timing: Today Pain level max: 7 Pain level now: 7 - Additonal information Additional information: Patient is a 63-year-old female who is currently undergoing treatment for breast cancer. She states that she has had 2 rounds of chemotherapy. She states that she is having pain in the bottom of her feet and pain in her mouth and throat. Worse with eating and drinking. Nothing makes it better. She is also concerned that she is losing her hair. No abdominal pain, vomiting or diarrhea. No fevers or chills. She attempted to call her oncologist, but did not receive a call back in 20 minutes so came to the ER. Review of Systems Constitutional: denies: Fever, Chills Ears: denies: Ear pain Nose: denies: Rhinorrhea / runny nose, Congestion Respiratory: denies: Cough GI: denies: Nausea, Vomiting, Diarrhea Skin: denies: Rash Musculoskeletal: denies: Neck pain, Back pain Neurologic: denies: Headache PD PAST MEDICAL HISTORY - Past Medical History Past Medical History: Yes Cardiovascular: Hypertension, High cholesterol Respiratory: Sleep apnea Neuro: None Endocrine/Autoimmune: None GI: Cholelithiasis, Other : None HEENT: Chronic vision loss Psych: None Musculoskeletal: Osteoarthritis, Chronic back pain Derm: None - Past Surgical History Past Surgical History: Yes General: Cholecystectomy, Appendectomy, Liver surgery, Other /RN NEONATAL: section, Other - Present Medications Home Medications: Ambulatory Orders Medication Instructions Recorded Confirmed Anastrozole 1 tab PO DAILY 03/28/23 09/18/23 Ursodiol [Che] 250 mg PO DAILY 07/04/23 09/18/23 OLANZapine [Zyprexa] 5 mg PO HS 07/18/23 09/18/23 Prochlorperazine Maleate 10 mg PO Q6HR PRN 07/18/23 09/18/23 [Compazine] dexAMETHasone [Decadron] 4 mg PO DAILY 07/18/23 09/18/23 ondansetron HCL [Ondansetron HCl] 8 mg PO Q8HR PRN 07/18/23 09/18/23 Lidocaine/Prilocain 2.5% Cream 5 g .ROUTE PRN PRN 08/07/23 09/18/23 [Emla 2.5% Cream] Lidocaine Viscous 2% [Xylocaine 5 ml MM Q6H PRN #100 ml 09/26/23 Viscous 2%] Sucralfate [Carafate] 1 gm PO TIDWM PRN #100 ml 09/26/23 oxyCODONE [Roxicodone] 5 - 10 mg PO Q6H PRN #14 tablet 09/26/23 MDD 6 - Allergies Allergies/Adverse Reactions: Allergies Allergy/AdvReac Type Severity Reaction Status Date / Time losartan Allergy Unknown Verified 07/31/23 09:02 lisinopril AdvReac Respiratory Verified 07/31/23 09:02 - Social History Does the pt smoke?: No Smoking Status: Never smoker Does the pt drink ETOH?: No Does the pt have substance abuse?: No - Immunizations Immunizations are current?: Yes - POLST Patient has POLST: No PD ED PE NORMAL - Vitals Vital signs reviewed: Yes - General General: Alert and oriented X 3, No acute distress - HEENT HEENT: PERRL, Moist mucous membranes, Other (There is slight ulceration on the right side of the tongue, mild erythema of the throat. No tonsillar exudates. Uvula midline. Normal phonation. No trismus.) - Neck Neck: Supple, no meningeal sign, No adenopathy - Cardiac Cardiac: RRR, Strong equal pulses - Respiratory Respiratory: No respiratory distress, Clear bilaterally - Abdomen Abdomen: Soft, Non tender, Non distended - Back Back: No CVA TTP, No spinal TTP - Derm Derm: Warm and dry, No rash - Extremities Extremities: No edema, Other (yellowing to the soles of the B feet) - Neuro Neuro: Alert and oriented X 3 - Psych Psych: Normal mood, Normal affect Results - Vitals Vitals: Vital Signs - 24 hr 09/26/23 09/26/23 09/26/23 19:15 19:39 19:50 Temperature 36.8 C Heart Rate 88 88 82 Respiratory 16 16 16 Rate Blood Pressure 148/86 H 148/86 H 141/84 H O2 Saturation 97 97 96 09/26/23 09/26/23 09/26/23 20:20 20:50 21:00 Temperature Heart Rate 81 81 77 Respiratory 16 16 Rate Blood Pressure 104/69 111/67 O2 Saturation 97 93 96 Oxygen O2 Source Room air PD Medical Decision Making - ED course Complexity details: reviewed results, re-evaluated patient, considered differential, d/w patient, d/w polymer materials consultant ED course: 63-year-old female with what appears to be a mucositis secondary to chemotherapy, also has pain in her feet. She was given oxycodone here and pain well-controlled. Also given a dose of Magic mouthwash and throat and mouth pain improved. I discussed the case with oncology on-call for Dr. Laws. They recommended contacting her oncologist in the morning. Will prescribe pain medication for home. No indication for laboratory testing at this time. Patient is well-appearing, nontoxic. Afebrile. Abdomen is soft, nontender nondistended. Tolerating p.o. without difficulty here. Patient counseled regarding signs and symptoms for which I believe and urgent re-evaluation would be necessary. Patient with good understanding of and agreement to plan and is comfortable going home at this time This document was made in part using voice recognition software. While efforts are made to proofread this document, sound alike and grammatical errors may occur. Departure - Departure Disposition: 01 Home, Self Care Clinical Impression: Mucositis Foot pain Qualifiers: Laterality: bilateral Qualified Code(s): M79.671 - Pain in right foot Chemotherapy adverse reaction Qualifiers: Encounter type: initial encounter Qualified Code(s): T45.1X5A - Adverse effect of antineoplastic and immunosuppressive drugs, initial encounter Condition: Good Instructions: Oncology [place] Hair Loss, Chemo Mouth Care Follow-Up: Dario Laws MD [Physician No Access] - Dario Laws MD [Provider Admit Priv/Credential] - Tomorrow Prescriptions: Sucralfate [Carafate] 1 gm PO TIDWM PRN #100 ml PRN Reason: mouth pain oxyCODONE [Roxicodone] 5 - 10 mg PO Q6H PRN #14 tablet MDD 6 PRN Reason: pain Lidocaine Viscous 2% [Xylocaine Viscous 2%] 5 ml MM Q6H PRN #100 ml PRN Reason: mouth pain Comments: You are having side effects from your chemotherapy. I spoke with oncology [place], they recommend that you follow-up with Dr. Laws tomorrow. We will prescribe pain medication for you as well as medication to help with the sores in your mouth. [facility] in [place]. I am prescribing a short course of narcotic pain medication for you. These are potentially dangerous and addictive medications that should be used carefully. These medications may constipate you. Take an [id number] stool softener (docusate) twice daily with plenty of water while taking these medications. If you go 24 hours without a bowel movement, take [id number] miralax, per package instructions. Do not drink or drive while taking these medications. If you received narcotic or sedating medications while in the emergency department, do not drive for 24 hours. Store this medication in a safe, secure place and out of reach of children. It is a violation of federal law to give or sell this medication to another person or to use in a manner other than prescribed. The ED will not refill narcotic prescriptions, including prescriptions lost or stolen. To dispose of unwanted medications: 1. [facility] at [address] [facility] in [place] has a medication drop box. They accept prescription medications (in pill form) Monday through Monday 9:00 a.m. to 5:00 p.m. 2. [facility] accepts prescription medications (in pill form only) for disposal year round. Call for more information. 3. Contact the [facility] for the next [facility] sponsored prescription drug collection event. , [phone], or [phone]; Forms: PCP List Discharge Date/Time: 09/26/23 21:20
[2023-09-26 21:38] VITALS: BP 111/67; O2SAT 96
== END 2023-09-26 21:20 | disposition home or self-care (01) ==
LOC: ED 19:07
DX: K12.31 Oral mucositis (ulcerative) due to antineoplastic therapy (principal); T45.1X5A Adverse effect of antineoplastic and immunosuppressive drugs, initial encounter; I10 Essential (primary) hypertension; D49.3 Neoplasm of unspecified behavior of breast
CPT/HCPCS: 99282; 99284; A9270